=== PATIENT | male | born 1965 | race African-American/Black ===

== ENCOUNTER 2017-11-27 08:09 | Observation (INO) | payer MEDICARE, MEDICAID ==
--- NOTE | 2017-11-27 09:31 | HP ---
PRIMARY CARE PROVIDER: [facility] call admission for [facility]. CHIEF COMPLAINT: The patient referred to [facility] Hospitalist Service by [facility] HISTORY OF PRESENT ILLNESS: The patient apparently presented to emergency room with right leg pain, also was told he had sharp chest pain that have been lasting a day plus, no shortness of breath, no s weats, no nausea. He admits to cocaine abuse on a frequent basis for the past 10 years. PAST MEDICAL HISTORY: None. MEDICATIONS: None. ALLERGIES: Allergic to PENICILLIN, rash. PAST SURGICAL HISTORY: Cholecystectomy, surgery on his right knee for a bite. FAMILY HISTORY: Grandfather of coronary artery disease. SOCIAL HISTORY: . Smokes a half a pack a day, drinks 1 beer per day. CODE STATUS: Full. REVIEW OF SYSTEMS: GENERAL: No headaches, dizziness or fainting. EYES: Poor near vision. No blurred vision, flashing lights. ENT: No ear pain or drainage. No nasal bleeding. No trouble swallowing. CARDIAC: See present illness. No pressure, chest pain, orthopnea, no paroxysmal nocturnal dyspnea. RESPIRATORY: No cough, wheezing or asthma. GASTROINTESTINAL: No nausea, vomiting, diarrhea or constipation. GENITOURINARY: No hematuria, dysuria or nocturia. MUSCULOSKELETAL: Some low back pain. No pain or swelling in his arms or legs. NEUROLOGIC: No strokes, seizures or focal weakness. PSYCHIATRIC: No anxiety, depression. SKIN: No bruising, bleeding or rash. HEME/LYMPH: No tender or swollen lymph nodes. PHYSICAL EXAMINATION: VITAL SIGNS: Blood pressure in the emergency room on 162/102, pulse 64, respirations 19. He rates h is pain as a 7 although he is in no distress, lying in bed comfortably. GENERAL: He is alert, oriented, a poor historian. HEENT: Reveal pupils equal, reactive and round. Extraocular movements intact. Sclerae white. Tymp anic membranes clear. Nose is clear. Oral mucous membranes are wet with poor dental hygiene. NECK: No jugular venous distention, adenopathy or thyromegaly. CHEST: No cardiomegaly, clear to auscultation and percussion. HEART: Regular rate and rhythm, no appreciated murmurs or gallops. Mild bradycardia. ABDOMEN: Soft, bowel sounds are normal. There is no hepatosplenomegaly, no mass, no rebound. EXTREMITIES: Reveal no cyanosis, clubbing or edema. PULSES: Carotid, radial, femoral, and dorsalis pedis pulses intact and symmetric. SKIN: Warm and dry without bruises or rash. HEME/LYMPH: No tender or swollen lymph nodes in axilla, inguinal or cervical area. NEUROLOGICAL: Cranial nerves II-XII are intact. Deep tendon reflexes symmetric. X-RAY FINDINGS: Chest x-ray shows no cardiomegaly, CHF or infiltrate, reviewed by me. EKG; transfer EKG reveals junctional bradycardia which appears to have a WPW with Delta wave. Monitor has a short NV interval again with a Delta wave reviewed by me. LABORATORY DATA: From [place]. CBC: Hemoglobin 12.7, white count 4.9, platelet count 162. Ch emistry: Sodium 141, potassium 4.2, BUN 10, creatinine 0.9, AST 72, bilirubin normal, ALT normal. T SH 1.3. Drug screen positive for cocaine and THC. ADMITTING DIAGNOSES: 1. Atypical chest pain. 2. Polysubstance abuse including cocaine. 3. 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 4. Hypertension, difficult to tell whether it is longstanding or related to his cocaine abuse. PLAN: We will do serial enzymes. We will repeat an EKG. We will monitor him for 24 hours. Cardiol ogy consult if appropriate. P.r.n. blood pressure medicines as needed.
[2017-11-27] MEDS ORDERED: Acetaminophen 325 MG TAB PO PRN (09:44)
[2017-11-27] MEDS ORDERED: hydrALAZINE 20 MG/ML VIAL SLOW IVP PRN (09:44)
[2017-11-27 09:53] VITALS: BMI 17.9
[2017-11-27 10:00] LABS: Troponin I Less than 0.010 ng/mL (< 0.028)
[2017-11-27] MEDS ORDERED: Aspirin 325 MG TAB PO SCH (10:00)
[2017-11-27 12:21] LABS: Troponin I Less than 0.010 ng/mL (< 0.028)
[2017-11-27 15:26] LABS: Troponin I Less than 0.010 ng/mL (< 0.028)
[2017-11-27 16:50] LABS: T4 7.5 ug/dL (4.87-11.72); Thyroid Stimulating Hormone 0.9763 uIU/mL (0.35-4.94)
[2017-11-27] MEDS ORDERED: traMADol HCl 50 MG TAB PO PRN (19:44)
[2017-11-28] MEDS ORDERED: Aspirin 325 MG TAB ONE (08:43)
[2017-11-28] MEDS ORDERED: traMADol HCl 50 MG TAB ONE (08:44)
[2017-11-28] MEDS: Aspirin 325 MG TAB PO SCH (11:22)
[2017-11-28 12:45] LABS: Anion Gap 10 mmol/L (10-20); BUN (Urea Nitrogen) 11 mg/dL (8.4-25.7); Calc. Creatinine Clearance 74 mL/min (70-130); Calcium 8.5 mg/dL (7.8-10.44); Carbon Dioxide 26 mmol/L (22-29); Chloride 105 mmol/L (98-107); Estimated GFR-MDRD Greater than 90; Glucose 93 mg/dL (70-105); Potassium 3.8 mmol/L (3.5-5.1); Sodium 137 mmol/L (136-145)
--- NOTE | 2017-11-28 16:47 | PDOC.PN ---
- Subjective Encounter Start Date: 11/28/17 Encounter Start Time: 09:30 Subjective: follow up for bradycardia, chest pain on admission, stress test today - Objective Resuscitation Status: Resuscitation Status FULL:Full Resuscitation MAR Reviewed: Yes Vital Signs & Weight: Vital Signs (12 hours) Temp Pulse Resp BP Pulse Ox 11/28/17 15:34 98 11/28/17 15:20 98.2 F 53 L 20 131/82 98 11/28/17 10:50 99.1 F 52 L 20 113/65 98 11/28/17 07:35 99.3 F 53 L 20 131/81 98 Weight Admit Weight 58.202 kg Weight 58.202 kg I&O: 11/27/17 11/28/17 11/29/17 06:59 06:59 06:59 Intake Total 720 350 Output Total 975 600 Balance -255 -250 Result Diagrams: 11/28/17 03:30 Phys Exam - Physical Examination HEENT: PERRLA, moist MMs Neck: no nodes, no JVD, full ROM Respiratory: no wheezing, no rales, no rhonchi, wheezing present, clear to auscultation bilateral Cardiovascular: RRR, no significant murmur, no rub, gallop, irregular reports acute on chronic right sciatica Neurological: non-focal, normal sensation, moves all 4 limbs Lymphatic: no nodes Psychiatric: normal affect, A&O x 3 Skin: no rash, normal turgor, cap refill <2 seconds Dx/Plan - Plan cont current plan of care 1. stress test tomorrow as patient ate some breakfast -: 2. Continue to monitor * .
[2017-11-29 08:39] LABS: #Basophils 0.1 thou/uL (0.0-0.2); #Eosinphils 0.1 thou/uL (0.0-0.7); #Lymphocytes 2.1 thou/uL (1.20-3.40); #Monocytes 0.4 thou/uL (0.11-0.59); %Basophils 2.7 % (0.0-1.0); %Eosinophils 2.3 % (0.0-10.0); %Lymphocytes 44.8 % (21.0-51.0); %Monocytes 9.1 % (0.0-10.0); %Neutrophils 41.2 % (42.0-75.0); Hemoglobin 13.3 g/dL (14.0-18.0); Mean Corpuscular HGB CONC 30.7 g/dL (32.0-36.0); Mean Corpuscular Hemoglobin 24.2 pg (27.0-31.0); Mean Corpuscular Volume 78.9 fL (78.0-98.0); Mean Platelet Volume 9.8 fL (7.4-10.4); Platelet Count 157 thou/uL (130-400); RBC Distribution Width 14.3 % (11.5-14.5); Red Blood Cell (RBC) Count 5.49 mill/uL (4.70-6.10); White Blood Cell (WBC) Count 4.8 thou/uL (4.8-10.8)
[2017-11-29 09:01] LABS: ALT (SGPT) 40 U/L (8-55); AST (SGOT) 49 U/L (5-34); Albumin 3.2 g/dL (3.5-5.0); Alkaline Phosphatase 57 U/L (40-150); Anion Gap 11 mmol/L (10-20); BUN (Urea Nitrogen) 12 mg/dL (8.4-25.7); Bilirubin, Total 0.5 mg/dL (0.2-1.2); Calc. Creatinine Clearance 81 mL/min (70-130); Calcium 8.8 mg/dL (7.8-10.44); Carbon Dioxide 27 mmol/L (22-29); Chloride 106 mmol/L (98-107); Estimated GFR-MDRD Greater than 90; Globulin 2.9 g/dL (2.4-3.5); Glucose 90 mg/dL (70-105); Potassium 3.9 mmol/L (3.5-5.1); Protein, Total 6.1 g/dL (6.0-8.3); Sodium 140 mmol/L (136-145)
[2017-11-29] MEDS ORDERED: Regadenoson 0.4 MG/5 ML SYRINGE ONE (10:39)
[2017-11-29] MEDS: Aspirin 325 MG TAB PO SCH (10:44)
[2017-11-29 11:19] VITALS: BP 136/78; TEMP 98.3
--- NOTE | 2017-11-29 12:27 | PDOC.EVN ---
Event Note - Event Note Event Note: I have examined and discussed patient who presented with chest pain and cocaine abuse with Nidia GONZALEZ, please refer to her documented note, H&P and discharge summary today. Discussed Stress Test results and need to avoid illicit drugs with their ramifications for future health problems. Pt verbalized understanding and agreement. Recommend outpatient followup for general health maintenanceand surveillance.
--- NOTE | 2017-11-29 12:31 | NM ---
NUCLEAR MEDICINE CARDIAC STRESS AND REST WITH EJECTION FRACTION AND WALL MOTION: HISTORY: 52-year-old male with history of chest pain. TECHNIQUE: Patient was injected with 30 mCi technetium-99m sestamibi intravenously for stress images and patient was injected with 27.0 mCi technetium-99m sestamibi intravenously for resting images. FINDINGS: Multiple scans performed in the short axis, horizontal long axis, and vertical long axis demonstrate no scan evidence for infarct or ischemia. TID: 1.05 LHR: 0.37 EDV: 109 mL EF: 61% MYOCARDIAL PERFUSION WALL MOTION: Wall motion is normal. IMPRESSION: Normal cardiac SPECT with ejection fraction and wall motion. POS: CORTES
--- NOTE | 2017-11-29 13:50 | DIS ---
DATE OF ADMISSION: 11/27/2017 DATE OF DISCHARGE: 11/29/2017 HOSPITAL COURSE: He is a 52-year-old male who was admitted on 11/27/2017 and discharged on 8. He is a FULL CODE. Diet, heart healthy. ALLERGIES: PENICILLIN. DISCHARGE DIAGNOSIS: Bradycardia, asymptomatic; chest pain which is resolved; cocaine and marijuana abuse. CONSULTATIONS: None. PROCEDURES: He had a stress test which was negative with an EF of 61%. His vitals on discharge; 98.3 temperature, 49 pulse, 20 respirations, 98% on room air, blood pressure 136/78. HOSPITAL COURSE: Mr. Resendiz was admitted on 11/27/2017 [address] emergency room at [facility] after he was seen at [place] [facility] and transferred here for further care. In [facility], he presented with right leg pain and reports a sharp chest pain for several days after the last ingesting cocaine. He was noted to be bradycardic with some nonspecific ST changes and was admi tted to the hospital for further testing. Patient was observed overnight and denied further chest pa in, but a stress test was ordered and delayed by one day after the patient ate some breakfast. On da y of discharge, the patient denied chest pain, dizziness. Does report some intermittent mild right l eg and back pain which he says this is minimal at this point. Stress test was negative with an EF of 61%. The patient will be discharged to follow up with primary care within 1 week. He is in stable condition and will be discharged home via private vehicle. He currently does not have a PCP, but dash chen obtain one at [facility] and should be seen within 1 week.
== END 2017-11-29 13:52 | disposition home or self-care (01) ==
LOC: ERS 08:09 → 2SW 09:40
PROVIDERS: ADMIT Internal Medicine; ATTEND Internal Medicine
DX: R07.89 Other chest pain (principal); M79.604 Pain in right leg; R00.1 Bradycardia, unspecified; F17.210 Nicotine dependence, cigarettes, uncomplicated; F14.10 Cocaine abuse, uncomplicated; F12.10 Cannabis abuse, uncomplicated; I10 Essential (primary) hypertension; Z88.0 Allergy status to penicillin
CPT/HCPCS: 78452; 80048; 80053; 82533; 84436; 84443; 84484; 85025; 90686; 90732; 93005; 93017; 94760 ×2; 99285; A9500; G0008; G0009; G0378 ×3; 36415; 90471; 93010; J2785

== ENCOUNTER 2019-05-30 19:34 | Observation (INO) | payer MEDICARE, MEDICAID ==
[2019-05-30 20:08] LABS: Mean Corpuscular HGB CONC 32.8 g/dL (32.0-36.0); Mean Corpuscular Hemoglobin 26.3 pg (27.0-31.0); Mean Corpuscular Volume 80.2 fL (78.0-98.0); RBC Distribution Width 13.6 % (11.5-14.5); Red Blood Cell (RBC) Count 2.29 mill/uL (4.70-6.10); White Blood Cell (WBC) Count 2.4 thou/uL (4.8-10.8)
[2019-05-30 20:24] LABS: Alcohol Less than 10 mg/dL (Less than 10); Calc. Creatinine Clearance 0 mL/min (70-130)
[2019-05-30 20:35] LABS: Mean Platelet Volume 8.3 fL (7.4-10.4); Platelet Count 77 thou/uL (130-400)
[2019-05-30 20:36] LABS: Band 2 % (5-11); Eosinophils 2 % (0-10); Lymphocytes 64 % (21-51); MDiff Complete? YES; Monocytes 7 % (0-10); Neutrophil 25 % (42-75); Platelet Morphology Comment Appears Decreased
[2019-05-30 21:40] LABS: Potassium 3.7 mmol/L (3.5-5.1); Sodium 140 mmol/L (136-145)
[2019-05-30 21:41] LABS: Carbon Dioxide 27 mmol/L (22-29); Chloride 105 mmol/L (98-107)
[2019-05-30 21:42] LABS: Anion Gap 12 mmol/L (10-20); BUN (Urea Nitrogen) 12 mg/dL (8.4-25.7)
[2019-05-30 21:43] LABS: Estimated GFR-MDRD 89; Glucose 85 mg/dL (70-105)
[2019-05-30 21:44] LABS: Bilirubin, Total 0.3 mg/dL (0.2-1.2); Calcium 8.9 mg/dL (7.8-10.44); Protein, Total 6.5 g/dL (6.0-8.3)
[2019-05-30 21:45] LABS: Albumin 3.6 g/dL (3.5-5.0)
[2019-05-30 21:47] LABS: Globulin 2.9 g/dL (2.4-3.5)
[2019-05-30 21:48] LABS: Alkaline Phosphatase 74 U/L (40-110)
[2019-05-30 21:49] LABS: ALT (SGPT) 24 U/L (8-55); AST (SGOT) 28 U/L (5-34)
--- NOTE | 2019-05-30 21:52 | RAD ---
AP CHEST: History: Abdominal pain. Comparison: 03-30-17 FINDINGS: The lungs appear clear of infiltrate. Heart and mediastinum unremarkable. Vascular markings upper nor mal but stable. IMPRESSION: No acute lung process. POS: AGW
--- NOTE | 2019-05-30 21:56 | CT ---
CT ABDOMEN AND PELVIS WITH IV CONTRAST: Indications: Right abdominal pain. FINDINGS: Liver, spleen and pancreas unremarkable. Mild biliary duct prominence is seen, probably on the basis of post cholecystectomy status. Stomach is distended with ingested material. Adrenal glands and kidneys unremarkable. The urinary bladder is mildly distended. Small bowel loops normal caliber. Evaluation of the bowel is limited due to lack of oral contrast. Th ere is no intraabdominal fat plains and therefore bowel loops are suboptimally evaluated. Appendix is not definitely identified, however, no secondary signs of appendicitis. No free fluid or soft tissue mass. IMPRESSION: No definite acute abnormality identified. Bowel loops and appendix are suboptimally evaluated. No marcus dence of appendicitis identified. POS: AGW
[2019-05-30 22:03] LABS: INR-International Normal Ratio 1.1; PTT 32.9 SEC (22.9-36.1); Prothrombin Time 13.7 SEC (12.0-14.7)
[2019-05-30] MEDS ORDERED: Pantoprazole 40 MG VIAL ONE (22:28)
[2019-05-30] MEDS ORDERED: Ondansetron PF 4 MG/2 ML Vial IVP PRN (23:58)
--- NOTE | 2019-05-31 00:03 | PDOC.HHP ---
Hospitalist HPI - History of Present Illness abdominal pain History of Present Illness: This is a 53 year old male with history of bipolar disorder, schizophrenia who presented to the ER with abdominal pain. The patient states his abdominal pain started at 4:00 pm. He ate cooked chicken at home and his uncle ate it as well and nobody got sick. His abdominal pain is in his RUQ, sharp, constant, and not radiating. His pain is worst with movement and while taking a deep breath. He had no nausea or vomiting. No constipation or diarrhea. No dysuria. He denies dizziness or lightheadedness. He denies blood in his stools. He does not take blood thinners or ibuprofen. He denies fevers, chills, or recent sick contacts. He denies history of travel. The patient drinks alcohol occasionally , however has used marijuana two days ago and cocaine yesterday as well. ED Course: The patient's vitals upon presentation to the ER were normal. Labs showed pancytopenia with hemoglobin of 6. Stool guaiac not done yet in the ER. Patient received 1 unit of PRBC in the ER, protonix 40 mg. Patient received fentanyl 100 mcg in EMS and per nursing patient had hallucinations so further pain meds were held. Patient did report improvement in his pain after the transfusion Hospitalist ROS - Review of Systems Constitutional: denies: fever, chills Eyes: denies: pain, vision change ENT: denies: ear pain, ear discharge Respiratory: denies: cough, dry, shortness of breath, hemoptysis Cardiovascular: denies: chest pain, palpitations, orthopnea Gastrointestinal: reports: other (last bowel movement today). denies: nausea, vomiting, abdominal pain Genitourinary: denies: dysuria, frequency, incontinence Musculoskeletal: denies: neck pain, shoulder pain, arm pain Skin: denies: rash, lesions, wilfrid Neurological: denies: weakness, numbness - Medication Medications: None Hospitalist History - Past Medical History Cardiac: reports: no pertinent history Pulmonary: reports: no pertinent history FULLERETTE: reports: no pertinent history Psych: reports: Bipolar, Schizophrenia (suicide attempt in the past) - Past Surgical History Past Surgical History: reports: Cholecystectomy - Family History Other Family History: None - Social History Smoking Status: Current every day smoker Alcohol: reports: Occassional Drugs: reports: cocaine (few days ago), marijuana (occasionally, used few days ago) - Exam General Appearance: NAD, awake alert General - other findings: appears to be in pain holding his stomach Eye: PERRL ENT: normocephalic atraumatic, no oropharyngeal lesions Neck: supple, no JVD Heart: no murmur, no gallops, no rubs Respiratory: CTAB, no wheezes, no rales, no ronchi Gastrointestinal: soft Gastrointestinal - other findings: RLQ tenderness, mild RUQ tenderness Extremities: no cyanosis, no clubbing, no edema Skin: normal turgor, no lesions, no rashes Neurological: cranial nerve grossly intact, normal sensation to touch, no focal deficits, no new deficit Musculoskeletal: normal tone, normal strength, no muscle wasting Psychiatric: normal affect, normal behavior, A&O x 3, oriented to person Hospitalist Results - Labs Result Diagrams: 05/30/19 19:56 05/30/19 19:56 Lab results: WBC 2.4 thou/uL (4.8-10.8) L 05/30/19 19:56 Hgb 6.0 g/dL (14.0-18.0) L 05/30/19 19:56 Hct 18.4 % (42.0-52.0) L 05/30/19 19:56 MCV 80.2 fL (78.0-98.0) 05/30/19 19:56 Plt Count 77 thou/uL (130-400) L 05/30/19 19:56 Band Neuts % (Manual) 2 % (5-11) L 05/30/19 19:56 Sodium 140 mmol/L (136-145) 05/30/19 19:56 Potassium 3.7 mmol/L (3.5-5.1) 05/30/19 19:56 Chloride 105 mmol/L (98-107) 05/30/19 19:56 Carbon Dioxide 27 mmol/L (22-29) 05/30/19 19:56 BUN 12 mg/dL (8.4-25.7) 05/30/19 19:56 Creatinine 1.05 mg/dL (0.7-1.3) 05/30/19 19:56 Glucose 85 mg/dL (70-105) 05/30/19 19:56 Lactic Acid 1.8 mmol/L (0.5-2.2) 05/30/19 21:43 Calcium 8.9 mg/dL (7.8-10.44) 05/30/19 19:56 Total Bilirubin 0.3 mg/dL (0.2-1.2) 05/30/19 19:56 AST 28 U/L (5-34) 05/30/19 19:56 ALT 24 U/L (8-55) 05/30/19 19:56 Alkaline Phosphatase 74 U/L (40-110) 05/30/19 19:56 Troponin I Less than 0.010 ng/mL (< 0.028) 05/30/19 21:43 Serum Total Protein 6.5 g/dL (6.0-8.3) 05/30/19 19:56 Albumin 3.6 g/dL (3.5-5.0) 05/30/19 19:56 Lipase 29 U/L (8-78) 05/30/19 21:43 - EKG Interpretation EKG: T wave inversion Hospitalist H&P A/P - Plan Plan: Chest Xray: no acute disease CT abdomen: no acute abnormality This is a 53 year old male with history of schizophrenia, bipolar presenting with abdominal pain and new onset anemia #Abdominal pain #Pancytopenia #Symptomatic anemia - hemoglobin 6. No history of sickle cell disease. S/p 1 unit prbc in the ER, patient will get additional unit. Check stool guaiac. CT abdomen normal, lactate normal - Will order protonix drip. - iron panel, B12, folate in the am. Will place GI consult. Consider heme evaluation if workup negative - pt reports recent HIV test 4 months ago that was negative Cocaine and marijuana abuse - will check utox History of hepatitis C - patient reports hep C that is untreated, will check antibody Bipolar/Schizophrenia - not on meds currently, pt to see psychiatrist soon GI prophylaxis: protonix drip DVT prophylaxis: contraindicated Code status: full code
[2019-05-31] MEDS ORDERED: Dextrose 5 % And 0.9 % NaCl 1,000 ML IV SCH (00:15)
[2019-05-31 00:48] LABS: Iron 79 ug/dL (65-175); Iron Binding Capacity, Total 221 mcg/dL (261-462)
[2019-05-31] MEDS: Pantoprazole 80 MG in Sodium Chloride 0.9% 100 ML IVPB SCH ×3 (00:50→21:48)
[2019-05-31] MEDS: Dextrose 5 % And 0.9 % NaCl 1,000 ML IV SCH ×2 (00:59→21:48)
[2019-05-31 01:08] LABS: Bacteria/HPF None Seen HPF (None Seen); Bilirubin Negative (Negative); Blood, Urine Negative (Negative); Clarity Clear (Clear); Glucose, Urine (Dipstick) Normal (Negative); Leukocyte Negative Leu/uL (Negative); Nitrite Negative (Negative); Protein, Urine (Dipstick) Negative (Neg-Trace); Squamous Epithelial 0-3 HPF (0-3); WBC/HPF 0-3 HPF (0-3)
[2019-05-31 01:10] LABS: Amphetamine Detected (NotDetected); Barbiturates Screen Not Detected (NotDetected); Benzodiazepine Screen Not Detected (NotDetected); Cocaine Metabolite Screen Detected (NotDetected); Medtox Control Line Valid? VALID (VALID); Medtox Reader # READER 4; Methadone Not Detected (NotDetected); Methamphetamine Detected (NotDetected); Opiate Screen Detected (NotDetected); Oxycodone Screen Not Detected (NotDetected); Phencyclidine (PCP) Not Detected (NotDetected); THC/Cannabinoid Screen Not Detected (NotDetected); Tricyclic Screen Not Detected (NotDetected); Urine Culture Reflex No No
[2019-05-31 05:50] LABS: Iron 131 ug/dL (65-175); Iron Binding Capacity, Total 213 mcg/dL (261-462)
[2019-05-31 06:10] LABS: Ferritin 91.88 ng/mL (22-322)
[2019-05-31 06:16] LABS: Vitamin B12 365 pg/mL (211-911)
[2019-05-31 06:21] LABS: Hep C IgG Ab Reflex HepC Qnt (NonReactive); Hep C Index 13.35 S/CO (0-0.79)
[2019-05-31 07:16] LABS: Hemoglobin 14.4 g/dL (14.0-18.0); Mean Corpuscular HGB CONC 32.5 g/dL (32.0-36.0); Mean Corpuscular Hemoglobin 25.9 pg (27.0-31.0); Mean Corpuscular Volume 79.7 fL (78.0-98.0); Mean Platelet Volume 9.6 fL (7.4-10.4); Platelet Count 134 thou/uL (130-400); RBC Distribution Width 15.4 % (11.5-14.5); Red Blood Cell (RBC) Count 5.57 mill/uL (4.70-6.10); White Blood Cell (WBC) Count 8.2 thou/uL (4.8-10.8)
[2019-05-31] MEDS: Morphine 2 MG/ML SYRINGE SLOW IVP PRN ×2 (10:25→19:41)
--- NOTE | 2019-05-31 15:18 | CON ---
DATE OF CONSULTATION: 05/31/2019 REASON FOR CONSULTATION: Right upper quadrant abdominal pain. CONSULTING PHYSICIAN: Aubree Campbell MD HISTORY OF PRESENT ILLNESS: The patient is a 53-year-old male with past medical history of chronic hepatitis C infection, bipolar disorder, schizophrenia, and cholelithiasis status post cholecystectomy, presenting with right upper quadrant abdominal pain. He states that he was in his usual state of health until yesterday afternoon when he had the acute onset of increased right upper quadrant and right lower quadrant abdominal pain. This pain was characterized as a sharp/stabbing type sensation, would radiate to the periumbilical region, was constant with waxing/waning severity, and reached a severity of 10/10. This pain was worse with talking for a prolonged period of time, walking/physical activity, pressure to the region, and bending over. The pain was only better with the administration of pain medications during this admission. However, the pain did not have any associated symptoms with the patient denying any nausea, vomiting, fevers, chills, hematemesis, melena, hematochezia, dysphagia, odynophagia, diarrhea, constipation, or weight loss. The patient does take ibuprofen, but is only taking around 400 mg weekly for general aches and pains. With the sudden onset of this abdominal pain and the constant nature of it, it prompted the patient to seek healthcare assistance within the [facility] ER. While in the ER, he was noted to have a significantly decreased hemoglobin and hematocrit, concerning for possible bleeding. He was given approximately 2 units of PRBCs, but repeat hemoglobin and hematocrit this morning showed normalization of both his hemoglobin and hematocrit (even with recheck of his hemoglobin and hematocrit). He does continue to have the right lower quadrant/right upper quadrant abdominal pain, that is currently being managed moderately with p.r.n. use of narcotic administration. The patient does have a history of polysubstance abuse with his last use of marijuana approximately 2 days ago, cocaine within the last 24 to 48 hours in addition to methamphetamine/ice around 4 to 5 days ago. REVIEW OF SYSTEMS: A 10-category review of systems was obtained with all responses negative except for the pertinent positives as listed in HPI. PAST MEDICAL HISTORY: As per HPI. PAST SURGICAL HISTORY: Cholecystectomy. FAMILY HISTORY: Denies any GI malignancies. SOCIAL HISTORY: Smokes approximately 1/4 to 1/2 pack per day of tobacco. Reports drinking approximately 2 to 3 alcoholic drinks every week, and endorses the use of illicit drugs (cocaine 24 to 48 hours ago, marijuana 2 days ago, methamphetamine/ice 4 to 5 days ago). OUTPATIENT MEDICATIONS: Ibuprofen as needed. ALLERGIES: PENICILLIN. PHYSICAL EXAMINATION: VITAL SIGNS: Temperature 98.2, pulse 53, blood pressure 164/86, respiratory rate 16, and saturating 99% on room air. GENERAL: The patient was lying in bed, in no acute distress. Alert and oriented x4. HEENT: Normocephalic and atraumatic. NECK: Supple. No JVD or scleral icterus noted. CARDIOVASCULAR: Regular rate and rhythm with frequent premature atrial contractions, but no discernable murmurs, gallops, or rubs. RESPIRATORY: Clear to auscultation bilaterally with no discernable wheezes or rales. ABDOMEN: Normoactive bowel sounds. Soft, but mild guarding to pain. Tender to palpation in the right upper quadrant and right lower quadrant. However, upon palpation of the right lower ribs, I was also able to reproduce the pain as well. EXTREMITIES: No cyanosis, clubbing, or edema. LABORATORY DATA: CBC with a white blood cell count of 8.2, hemoglobin 15, hematocrit 48.2, and platelets 134. INR 1.1. Chemistry with a sodium of 140, potassium 3.7 chloride 105, CO2 of 27, BUN 12, creatinine 1.05, glucose 85, AST 28, ALT 24, alkaline phosphatase 74, and total bilirubin 0.3. Folate 6, B12 of 365, iron 79, ferritin 91, and TIBC 221. Drug screen was positive for opiates, amphetamine, methamphetamine, and cocaine. IMAGING DATA: CT of the abdomen and pelvis was obtained on 05/30/2019, which showed no acute abnormalities in a noncontrasted exam. However, upon my read, there was significant dilation of the urinary bladder with a fair amount of stool seen within the distal colon (could not tell if this was due to his distended bladder). ASSESSMENT AND PLAN: The patient is a 53-year-old male with past medical history of chronic hepatitis C infection, bipolar disorder, schizophrenia, polysubstance abuse, and cholelithiasis status post cholecystectomy, presenting with increased right lower quadrant/right upper quadrant abdominal pain and anemia. 1. Right-sided abdominal pain: The patient is presenting with fairly acute onset of increased right upper quadrant abdominal pain, characterized as a sharp/stabbing type sensation, it is constant with waxing/waning severity, and reaching a severity of 10/10. The patient has never felt this particular pain before including when he had his gallbladder removed. Further evaluation of his labs showed no significant abnormality within the liver function tests and his initial anemia on rechecking his hemoglobin and hematocrit was deemed to be erroneous, making a possible bleeding source much less likely. On physical exam, the patient seems to be having increased abdominal pain in both the right lower quadrant and right upper quadrant, but also has increased pain within the right lower ribs, concerning for musculoskeletal origin rather than a gastrointestinal etiology. At this time, the differential could include costochondritis/right rib pain, constipation with increased pressure within the right colon, choledocholithiasis (less likely given normal liver function tests), mesenteric or intestinal ischemia secondary to the vasoconstrictive effects from methamphetamine and cocaine and/or GI neoplasm. Recommendations: a. Pain control per primary team, but would attempt to avoid narcotics given the higher likelihood of constipation. b. Would consider evaluation of urinary bladder dysfunction compressing the distal colon and creating constipation. c. Could consider use of NSAIDs for costochondritis and couple with PPI. d. Would start the patient on a bowel regimen including MiraLAX one capful daily for probable constipation. e. Strongly encourage cessation of any illicit drugs. f. If the patient is not responding to more conservative management for his abdominal pain, I would then consider possible repeat of the CT abdomen and pelvis with contrast prior to proceeding with upper or lower endoscopy. 2. Anemia: The patient initially presented to the hospital with his initial hemoglobin and hematocrit of 6.0 and 18.4. He was subsequently given 2 units of packed red blood cells in the ER and admitted to the hospitalist service for further evaluation. However, on recheck of his hemoglobin and hematocrit today, the initial hemoglobin was 14.4 with a recheck at 15. At this point, it seems that the hemoglobin of 6 yesterday was an erroneous value and not indicative of any significant anemia at this time. Based on his current iron indices, they are fairly normal as well, again not indicative of an iron deficiency anemia despite the fact that his MCV is a bit on the low side. Recommendations: a. Would continue to trend his hemoglobin and hematocrit to confirm that the initial lab value was erroneous. b. No further anemia workup is planned at this time. We will continue to follow. Please call with any questions. Job ID: [id number]
[2019-05-31] MEDS ORDERED: Folic Acid 1 MG TAB PO SCH (16:15)
[2019-05-31] MEDS ORDERED: hydrALAZINE 20 MG/ML VIAL SLOW IVP SCH (20:00)
[2019-06-01 04:29] VITALS: TEMP 98
[2019-06-01] MEDS: Morphine 2 MG/ML SYRINGE SLOW IVP PRN ×2 (05:25→09:23)
[2019-06-01] MEDS: Pantoprazole 80 MG in Sodium Chloride 0.9% 100 ML IVPB SCH (08:02)
[2019-06-01] MEDS ORDERED: Folic Acid 1 MG TAB PO SCH (09:00)
[2019-06-01] MEDS ORDERED: Polyethylene Glycol 3350 17 GM Packet PO SCH (09:00)
[2019-06-01] MEDS ORDERED: Acetaminophen 500 MG TAB PO PRN (10:50)
[2019-06-01 13:13] VITALS: BP 131/84
--- NOTE | 2019-06-01 15:57 | PRG ---
DATE OF SERVICE: 06/01/2019 SUBJECTIVE: Mr. Resendiz is no longer having abdominal pain. He is going to be discharged home today. OBJECTIVE: VITAL SIGNS: Temperature is 98, pulse 54, blood pressure 131/84. ABDOMEN: Soft, nontender. There is no rebound. There is no guarding. LABORATORY DATA: Hemoglobin yesterday was 15, on repeat was not checked today; his MCV is 80 to 79, it has been that way for several years. He had normal iron studies with iron 131, TIBC of 213, saturation 62%, ferritin 91, folate was 6. B12 was 365. UDS positive for opioids, amphetamine, methamphetamine, cocaine, and cannabinoids. Hepatitis C antibody on 05/[address] on 05/30/2019, no definite acute abnormality. ASSESSMENT: 1. Presented today with acute anemia, although on recheck of labs, his blood count was normal and had been 13.4 on 05/27/2019. On 05/29, it was 6. Recheck on 05/30, it was 14, then 15. It seems the lab was artifactually low. 2. Hepatitis C antibody positive. 3. Ongoing substance abuse. 4. Resolution of abdominal pain, which was likely related to cocaine use and methamphetamine with negative CAT scan. RECOMMENDATIONS: 1. PPI. 2. Stop drug use. 3. Follow up in my office to treat hepatitis C. The patient was given our office number and discussed with them with hepatitis C, there is risk of hepatoma, liver cancers, cirrhosis, and . Recommended he stop using drugs, get to our office to get treated. He said he did not have a number we can call him, but I did give him our number. Job ID: [id number]
[2019-06-02 12:37] LABS: HCV log10 5.017 (.); Hep C PCR-Quant 104000 IU/mL (.)
--- NOTE | 2019-06-03 14:08 | DIS ---
DATE OF ADMISSION: 05/30/2019 DATE OF DISCHARGE: 06/01/2019 HISTORY: Mr. Resendiz is a 53-year-old male with a history of bipolar disorder, schizophrenia, and polysubstance abuse, presented with abdominal pain. He was diagnosed with acute abdominal pain due to opioid withdrawal as well as cocaine and methamphetamine use. He was also diagnosed with chronic hepatitis C. PROBLEMS: 1. Abdominal pain due to polysubstance abuse. a. The patient has had a long history of polysubstance abuse. b. Presented with acute abdominal pain without specific findings. c. Pain spontaneously resolved the day following presentation. d. abdomianl pain due to opioid abuse (constipation) or withdrawal, or mesenteric ischemia due to cocaine or methamphetamine-induced ischemia. e. Gastroenterology was consulted and had a long discussion as well as myself with the patient regarding risks of continued polysubstance abuse as well as written instructions on how to receive help. 2. Hepatitis C, chronic: a. Gastroenterology prior to discharge of the patient left the patient with written information regarding clinic and how to reach them. In addition to that, Gastroenterology educated the patient regarding the risk of not treating hepatitis C. 3. Polysubstance abuse. a. On presentation, the patient had opioids, amphetamine, methamphetamine, and cocaine in his urine. b. The patient was educated regarding the risks of continued polysubstance abuse as well as written referrals in order to receive help. PHYSICAL EXAMINATION: VITAL SIGNS: Blood pressure 131/84, pulse 50-60s throughout inpatient stay and the patient remained asymptomatic, respiratory rate 16, oxygen saturation 98% on room air, and temperature 98.0 Fahrenheit. GENERAL: No apparent distress. Awake and alert. HEENT: Eyes, PERRL. ENT, normocephalic atraumatic with moist oral mucosa. NECK: No JVD. HEART: No murmur. No gallops. No rubs. RESPIRATORY: Clear to auscultation bilaterally. No wheezes, no rales, no rhonchi. GI: Soft, nontender, and nondistended. EXTREMITIES: No edema. NEUROLOGIC: Cranial nerves grossly intact, 2 through 12. Strength 5/5 throughout upper and lower extremities. PSYCHIATRIC: Normal affect. Normal behavior. Alert and oriented x3. MEDICATION LIST: New medications: 1. Multivitamin. 2. Iron. 3. Folic acid. 4. MiraLAX. Modified medication, none. Hold medication, none. Job ID: [id number] MTDD
--- NOTE | 2019-06-05 09:59 | EKG ---
Test Reason : Blood Pressure : / mmHG Vent. Rate : 058 BPM Atrial Rate : 058 BPM P-R Int : 142 ms QRS Dur : 090 ms QT Int : 468 ms P-R-T Axes : 084 074 062 degrees QTc Int : 459 ms Sinus bradycardia Possible Left atrial enlargement Borderline ECG Confirmed by TOYIN ACEVEDO ([id number]), photographic editor DIPAK NUNEZ ([id number]) on 06/05/2019 9:59:06 AM Referred By: Confirmed By:TOYIN ACEVEDO
== END 2019-06-01 15:00 | disposition home or self-care (01) ==
LOC: ERS 19:34 → T4-B 22:33
PROVIDERS: ADMIT Internal Medicine; ATTEND Internal Medicine
DX: R10.11 Right upper quadrant pain (principal); F19.10 Other psychoactive substance abuse, uncomplicated; D61.818 Other pancytopenia; D64.9 Anemia, unspecified; F20.9 Schizophrenia, unspecified; F31.9 Bipolar disorder, unspecified; F17.210 Nicotine dependence, cigarettes, uncomplicated; B18.2 Chronic viral hepatitis C; Z88.0 Allergy status to penicillin
CPT/HCPCS: 36430 ×2; 71045; 74177; 80053; 80306; 80307; 81001; 82607; 82728; 82746; 83540 ×2; 83550 ×2; 83605; 83690; 84484; 85014; 85018; 85025; 85027; 85610; 85730; 86803; 86850; 86900; 86901; 86920; 87522; 93005; 96361 ×3; 96365; 96366; 96375; 96376 ×3; 99285; C9113 ×3; G0378 ×2; J0360; J2270 ×2; J3490 ×2; P9016 ×2; 36415; 96374

== ENCOUNTER 2019-11-10 01:53 | Emergency (ER) | payer MEDICARE, OTHER ==
[2019-11-10 02:30] LABS: #Basophils 0.1 thou/uL (0.0-0.2); #Eosinphils 0.2 thou/uL (0.0-0.7); #Lymphocytes 2.7 thou/uL (1.20-3.40); #Monocytes 0.3 thou/uL (0.11-0.59); #Neutrophils 2.2 thou/uL (1.40-6.50); %Basophils 1.1 % (0.0-1.0); %Eosinophils 2.9 % (0.0-10.0); %Lymphocytes 49.9 % (21.0-51.0); %Monocytes 5.9 % (0.0-10.0); %Neutrophils 40.2 % (42.0-75.0); Hemoglobin 14.1 g/dL (14.0-18.0); Mean Corpuscular HGB CONC 32.3 g/dL (32.0-36.0); Mean Corpuscular Hemoglobin 25.9 pg (27.0-31.0); Mean Platelet Volume 8.7 fL (7.4-10.4); Platelet Count 156 thou/uL (130-400); RBC Distribution Width 13.6 % (11.5-14.5); Red Blood Cell (RBC) Count 5.45 mill/uL (4.70-6.10); White Blood Cell (WBC) Count 5.4 thou/uL (4.8-10.8)
[2019-11-10 02:52] LABS: ALT (SGPT) 94 U/L (8-55); AST (SGOT) 99 U/L (5-34); Albumin 3.8 g/dL (3.5-5.0); Alkaline Phosphatase 133 U/L (40-110); Anion Gap 14 mmol/L (10-20); BUN (Urea Nitrogen) 16 mg/dL (8.4-25.7); Bilirubin, Total 0.2 mg/dL (0.2-1.2); CK (CPK) 128 U/L (30-200); Calc. Creatinine Clearance 0 mL/min (70-130); Carbon Dioxide 24 mmol/L (22-29); Chloride 105 mmol/L (98-107); Estimated GFR-MDRD Greater than 90; Globulin 3.1 g/dL (2.4-3.5); Glucose 68 mg/dL (70-105); Lipase 158 U/L (8-78); Potassium 3.5 mmol/L (3.5-5.1); Protein, Total 6.9 g/dL (6.0-8.3); Sodium 139 mmol/L (136-145)
[2019-11-10 02:53] LABS: Acetaminophen Less than 6.0 mcg/mL (10.0-30.0); Alcohol Less than 10 mg/dL (Less than 10); Salicylate Less than 8.0 mg/dL (15.0-30.0)
[2019-11-10 04:36] LABS: Amphetamine Detected (NotDetected); Barbiturates Screen Not Detected (NotDetected); Benzodiazepine Screen Not Detected (NotDetected); Cocaine Metabolite Screen Detected (NotDetected); Medtox Control Line Valid? VALID (VALID); Medtox Reader # READER 4; Methadone Not Detected (NotDetected); Methamphetamine Detected (NotDetected); Opiate Screen Detected (NotDetected); Oxycodone Screen Not Detected (NotDetected); Phencyclidine (PCP) Not Detected (NotDetected); THC/Cannabinoid Screen Detected (NotDetected); Tricyclic Screen Not Detected (NotDetected)
--- NOTE | 2019-11-10 07:44 | RAD ---
EXAM: CHEST ONE VIEW HISTORY: Chest pain. COMPARISON: 09/19/2019 FINDINGS: The cardiac silhouette and pulmonary vasculature are within normal limits. The lungs are clear. The o sseous structures are intact. IMPRESSION: No acute cardiopulmonary process.
[2019-11-10 15:49] LABS: SARS-CoV-2 NAA Rapid Test Not Detected (NotDetected)
--- NOTE | 2019-11-23 16:23 | EKG ---
Test Reason : Blood Pressure : / mmHG Vent. Rate : 044 BPM Atrial Rate : 048 BPM P-R Int : 000 ms QRS Dur : 086 ms QT Int : 502 ms P-R-T Axes : 000 073 015 degrees QTc Int : 429 ms Junctional bradycardia Abnormal ECG Confirmed by MELISA SINGH DO ([id number]), mapping editor KAVIN HERRERA ([id number]) on 11/23/2019 4:22:27 PM Referred By: Confirmed By:MELISA SINGH DO
== END 2019-11-10 20:22 ==
LOC: ERS 01:53
DX: R07.89 Other chest pain (principal); F15.10 Other stimulant abuse, uncomplicated; Z20.828 Contact with and (suspected) exposure to other viral communicable diseases; R45.851 Suicidal ideations; I10 Essential (primary) hypertension; F31.9 Bipolar disorder, unspecified; F20.9 Schizophrenia, unspecified; F41.9 Anxiety disorder, unspecified; F17.210 Nicotine dependence, cigarettes, uncomplicated; Z87.442 Personal history of urinary calculi
CPT/HCPCS: 71045; 80306; 80307; 82550; 83690; 84484; 93005; 99285; U0002; 36415; 80053; 84443; 85025

== ENCOUNTER 2019-12-28 03:28 | Emergency (ER) | payer MEDICARE, OTHER ==
[2019-12-28] MEDS ORDERED: Ketorolac Tromethamine 30 MG/ML VIAL ONE (03:53)
== END 2019-12-28 04:40 | disposition home or self-care (01) ==
LOC: ERS 03:28
DX: G89.29 Other chronic pain (principal); M54.9 Dorsalgia, unspecified; M25.561 Pain in right knee; I10 Essential (primary) hypertension; F31.9 Bipolar disorder, unspecified; F41.9 Anxiety disorder, unspecified; F17.210 Nicotine dependence, cigarettes, uncomplicated; F25.9 Schizoaffective disorder, unspecified
CPT/HCPCS: J1885

== ENCOUNTER 2019-12-28 14:54 | Inpatient (IN) | payer MEDICARE, MEDICAID ==
[2019-12-28] MEDS ORDERED: Atropine Sulfate 1 mg/10 ml Syringe ONE (16:27)
[2019-12-28 16:37] LABS: Mean Corpuscular HGB CONC 31.2 g/dL (32.0-36.0); Mean Corpuscular Hemoglobin 24.6 pg (27.0-31.0); Mean Platelet Volume 9.4 fL (7.4-10.4); Platelet Count 132 thou/uL (130-400); RBC Distribution Width 14.1 % (11.5-14.5); Red Blood Cell (RBC) Count 6.08 mill/uL (4.70-6.10); White Blood Cell (WBC) Count 4.7 thou/uL (4.8-10.8)
--- NOTE | 2019-12-28 16:42 | RAD ---
XR Chest 1 View Portable History: Dyspnea Comparison: Radiograph December 02, 2019 Findings: Fibular projects over the right upper chest wall. Lungs are clear. No pneumothorax. No effu aidee. Prominent left nipple shadow. No acute osseous abnormality. Impression: No acute intrathoracic abnormality.
[2019-12-28 16:55] LABS: ALT (SGPT) 71 U/L (8-55); AST (SGOT) 111 U/L (5-34); Alkaline Phosphatase 93 U/L (40-110); Anion Gap 16 mmol/L (10-20); BUN (Urea Nitrogen) 22 mg/dL (8.4-25.7); Bilirubin, Total 0.6 mg/dL (0.2-1.2); CK (CPK) 398 U/L (30-200); Calc. Creatinine Clearance 0 mL/min (70-130); Calcium 9.5 mg/dL (7.8-10.44); Carbon Dioxide 26 mmol/L (22-29); Chloride 103 mmol/L (98-107); Estimated GFR-MDRD Greater than 90; Globulin 3.5 g/dL (2.4-3.5); Lipase 44 U/L (8-78); Potassium 3.7 mmol/L (3.5-5.1); Protein, Total 7.5 g/dL (6.0-8.3); Sodium 141 mmol/L (136-145)
[2019-12-28 17:03] LABS: Acetaminophen Less than 6.0 mcg/mL (10.0-30.0); Alcohol Less than 10 mg/dL (Less than 10); Salicylate Less than 8.0 mg/dL (15.0-30.0)
[2019-12-28 17:05] LABS: Eosinophils 4 % (0-10); Hypochromia SLIGHT = 6-15 cells (100X) (0-5/hpf); Lymphocytes 40 % (21-51); MDiff Complete? YES; Monocytes 15 % (0-10); Neutrophil 31 % (42-75); Platelet Morphology Comment Appears Adequate; Polychromasia SLIGHT = 2-3 cells (100X) (0-2/hpf); Reactive Lymphocytes 10 % (0-10); Target Cells MODERATE= 6-15 cells (100X) (0-1/hpf)
[2019-12-28 17:09] LABS: Glucose 45 mg/dL (70-105)
[2019-12-28] MEDS ORDERED: Dextrose 50% Abboject 50 ML SYRINGE ONE (17:14)
--- NOTE | 2019-12-28 17:56 | CT ---
CT Brain WO Con History: Auditory hallucinations Comparison: CT brain November 15, 2019 Findings: No acute hemorrhage or infarct. Right paracentral canela radiata hypodensity is similar. No midline shift or mass effect. Particular size and extra-axial CSF spaces are similar. No acute osseous abnormality. Paranasal sinuses and mastoids are clear. Impression: No acute intracranial abnormality.
[2019-12-28] MEDS ORDERED: Cefepime 2 GM VIAL ONE (18:02)
[2019-12-28] MEDS ORDERED: Aspirin Chewable 81 MG TAB ONE (18:03)
--- NOTE | 2019-12-28 18:21 | RAD ---
XR Pelvis AP STANDARD History: Pain Comparison: Pelvis CT December 02, 2019 Findings: No acute displaced fracture or malalignment. Obturator rings are intact. Soft tissues are unremarkable. Impression: No acute osseous abnormality.
[2019-12-28 18:42] LABS: Bilirubin Negative (Negative); Blood, Urine Negative (Negative); Clarity Clear (Clear); Glucose, Urine (Dipstick) 200 mg/dL (Negative); Ketone, Urine Negative (Negative); Leukocyte Negative Leu/uL (Negative); Nitrite Negative (Negative); Protein, Urine (Dipstick) Negative (Neg-Trace); Specific Gravity, Urine 1.006 (1.002-1.036); Urobilinogen Normal mg/dL (Less than 2)
[2019-12-28] MEDS ORDERED: Vancomycin 1 GM/200 ML BAG ONE (18:56)
[2019-12-28 19:00] LABS: Amphetamine Detected (NotDetected); Barbiturates Screen Not Detected (NotDetected); Benzodiazepine Screen Not Detected (NotDetected); Cocaine Metabolite Screen Not Detected (NotDetected); Medtox Control Line Valid? VALID (VALID); Medtox Reader # READER 1; Methadone Not Detected (NotDetected); Methamphetamine Detected (NotDetected); Opiate Screen Not Detected (NotDetected); Oxycodone Screen Not Detected (NotDetected); Phencyclidine (PCP) Not Detected (NotDetected); THC/Cannabinoid Screen Not Detected (NotDetected); Tricyclic Screen Not Detected (NotDetected)
[2019-12-28 19:51] LABS: Lactic Acid 2.3 mmol/L (0.5-2.2)
[2019-12-28 19:57] LABS: Troponin I Less than 0.010 ng/mL (< 0.028)
--- NOTE | 2019-12-28 20:52 | PDOC.HHP ---
Hospitalist HPI - History of Present Illness Altered mental status History of Present Illness: Mr. Resendiz is a 54-year-old male patient with a history of bipolar disorder, schizophrenia and polysubstance abuse was brought to the ER for medical evaluation for a psychiatric condition requiring [facility] evaluation. He is noted to have reported hearing voices in his behavior was erratic. He was apparently taken to [facility] and later brought here for further evaluation. Time of my evaluation patient was lying in bed somnolent complaining of generalized body pains. He was talking but barely audibly. He complains of generalized body pains in his knees bilaterally back and several points on his head. He also admits to auditory hallucinations telling him to kill himself. He denies any nausea vomiting chest pain or shortness of breath. Next At presentation blood pressure was 118/115, pulse 44, respiratory 26 temperature 96 saturating at 100% on room air. His labs showed unremarkable BMP, he however had hypoglycemia 45. WBC was slightly elevated at 4.7 otherwise CBC was essentially normal. Lactic acid was multilevel at 3.7. Urine drug screen revealed presence of methamphetamines and amphetamines. CT scan of his brain was negative for any acute event, pelvic x-ray was unremarkable, chest x-ray also showed no acute intrathoracic events. Due to concern for sepsis he was given vancomycin and cefepime. He received 1.5 L normal saline and dextrose for hypoglycemia. Also received atropine for bradyca rdia with improvement in his heart rate. Hospitalist ROS - Review of Systems Constitutional: denies: fever, chills Respiratory: denies: cough, shortness of breath, hemoptysis, SOB with excertion Cardiovascular: denies: chest pain, palpitations, orthopnea, paroxysmal noc. dyspnea Gastrointestinal: denies: nausea, vomiting, abdominal pain, diarrhea Musculoskeletal: reports: neck pain, back pain Neurological: denies: weakness, numbness, incoordination, change in speech Hospitalist History - Past Medical History Psych: reports: Bipolar, Schizophrenia (suicide attempt in the past) Other Medical History: bipolar disorder, schizophrenia and polysubstance abuse - Past Surgical History Past Surgical History: reports: Cholecystectomy - Family History Family History: reports: no pertinent history - Social History Smoking Status: Current every day smoker Alcohol: reports: Occassional Drugs: reports: cocaine (few days ago), marijuana (occasionally, used few days ago) - Exam General - other findings: Awake but drowsy Eye: PERRL, anicteric sclera Neck: supple, no JVD Heart: RRR, no murmur, no gallops, normal peripheral pulses Respiratory: no wheezes, no rales, no ronchi, no tachypnea Gastrointestinal: soft, non-tender, non-distended, normal bowel sounds Extremities: no cyanosis, no clubbing, no edema Neurological: cranial nerve grossly intact, no weakness Psychiatric: A&O x 3, flat affect Psychiatric - other findings: Lethargic Hospitalist Results - Labs Result Diagrams: 12/28/19 16:27 12/28/19 16:27 Lab results: WBC 4.7 thou/uL (4.8-10.8) L 12/28/19 16:27 Hgb 15.0 g/dL (14.0-18.0) 12/28/19 16:27 Hct 48.0 % (42.0-52.0) 12/28/19 16:27 MCV 79.0 fL (78.0-98.0) 12/28/19 16:27 Plt Count 132 thou/uL (130-400) 12/28/19 16:27 Sodium 141 mmol/L (136-145) 12/28/19 16:27 Potassium 3.7 mmol/L (3.5-5.1) 12/28/19 16:27 Chloride 103 mmol/L (98-107) 12/28/19 16:27 Carbon Dioxide 26 mmol/L (22-29) 12/28/19 16:27 BUN 22 mg/dL (8.4-25.7) 12/28/19 16:27 Creatinine 1.00 mg/dL (0.7-1.3) 12/28/19 16:27 Glucose 45 mg/dL (70-105) L* 12/28/19 16:27 Lactic Acid 2.3 mmol/L (0.5-2.2) H 12/28/19 19:24 Calcium 9.5 mg/dL (7.8-10.44) 12/28/19 16:27 Total Bilirubin 0.6 mg/dL (0.2-1.2) 12/28/19 16:27 AST 111 U/L (5-34) H 12/28/19 16:27 ALT 71 U/L (8-55) H 12/28/19 16:27 Alkaline Phosphatase 93 U/L (40-110) 12/28/19 16:27 Creatine Kinase 398 U/L (30-200) H 12/28/19 16:27 Troponin I Less than 0.010 ng/mL (< 0.028) 12/28/19 19:24 B-Natriuretic Peptide 18.2 pg/mL (0-100) 12/28/19 16:27 Serum Total Protein 7.5 g/dL (6.0-8.3) 12/28/19 16:27 Albumin 4.0 g/dL (3.5-5.0) 12/28/19 16:27 Lipase 44 U/L (8-78) 12/28/19 16:27 Urine Ketones Negative mg/dL (Negative) 12/28/19 17:59 Urine Blood Negative (Negative) 12/28/19 17:59 Urine Nitrite Negative (Negative) 12/28/19 17:59 Ur Leukocyte Esterase Negative Amanda/uL (Negative) 12/28/19 17:59 Hospitalist H&P A/P - Plan Plan: This is a 54-year-old male patient with a history of polysubstance abuse, h ypertension schizophrenia bipolar disorder who presents with altered mental status for evaluation. Next Possible sepsis WBC slightly reduced, elevated lactate, elevated liver enzyme Will continue on antibiotics Follow-up on culture Acute encephalopathy Multifactorialsubstance abuse, hypoglycemia, possible sepsis Hypoglycemia corrected with dextrose We will monitor overnight on admission. Psychotic disorder Has history of schizophrenia/bipolar disorder Not clear what his medications are the moment To contact patient's pharmacy in a.m or help from [facility]. Zyprexa as needed for agitation Bradycardia Heart rate goes as low as 40s. Currently improved after atropine Monitor on telemetry As needed atropine Cardiology evaluation am Depression Patient depressed-likely component of bipolar disorder Noted previous suicidal ideation. We will treat his psychiatric disorders Sitter in room. [facility] evaluation once stable Hypoglycemia Glucose corrected Monitor Hepatitis AST elevated at 111 ALT of 71 Right upper quadrant ultrasound in a.m. [place] prophylaxisfull code
[2019-12-28] MEDS ORDERED: Dextrose 5% in Water 1,000 ML IV PRN (21:15)
[2019-12-28] MEDS ORDERED: Dextrose 50% Abboject 50 ML SYRINGE SLOW IVP PRN (21:15)
[2019-12-28] MEDS ORDERED: OLANZapine 10 MG VIAL IM PRN ×2 (21:18→21:21)
[2019-12-28] MEDS ORDERED: Dextrose 5 % And 0.9 % NaCl 1,000 ML IV SCH (21:30)
[2019-12-28] MEDS ORDERED: Atropine Sulfate 1 mg/1 ml Vial IVP PRN (22:26)
[2019-12-28 22:56] LABS: Troponin I 0.026 ng/mL (< 0.028)
[2019-12-28 22:58] VITALS: BMI 18.5
[2019-12-28] MEDS: Acetaminophen 325 MG TAB PO PRN (23:30)
[2019-12-29] MEDS ORDERED: Lidocaine 5% Patch TD SCH (03:30)
[2019-12-29] MEDS: Cefepime 2 GM in Sodium Chloride 0.9% 100 ML IVPB SCH ×2 (05:03→16:54)
[2019-12-29] MEDS ORDERED: Vancomycin 1 GM in Premix Bag 1 BAG IVPB SCH (06:00)
[2019-12-29] MEDS ORDERED: Cefepime 2 GM in Sodium Chloride 0.9% 100 ML IVPB SCH (06:00)
[2019-12-29 06:21] LABS: HBCM Index 0.07 S/CO (0-0.79); HBSAg Index 0.15 S/CO (0-0.99); Hep A IgM AB Non-Reactive (NonReactive); Hep A IgM S/CO 0.18 S/CO (0-0.79); Hep B Surf Ag Non-Reactive S/CO (NonReactive); Hepatitis B Core IgM Abs Non-Reactive (NonReactive)
[2019-12-29 06:38] LABS: Hep C IgG Ab Reflex HepC Qnt (NonReactive); Hep C Index 12.74 S/CO (0-0.79)
--- NOTE | 2019-12-29 07:54 | ULT ---
GALLBLADDER ULTRASOUND: HISTORY:Hepatitis, elevated LFTs FINDINGS: The liver demonstrates increased echogenicity without focal mass or intrahepatic biliary ductal dilat ation. The patient is post cholecystectomy. The right kidney and visualized portions of the pancreas are normal. The common duct [id number] in diameter. No free fluid is seen in the Cook's pouch. IMPRESSION: 1. Fatty liver 2. Status post cholecystectomy
[2019-12-29] MEDS ORDERED: FLU VACC QS2020-21(6MOS UP)/PF 60 MCG/0.5 ML SYRINGE IM ONE (09:00)
[2019-12-29 09:02] LABS: #Basophils 0.1 thou/uL (0.0-0.2); #Eosinphils 0.1 thou/uL (0.0-0.7); #Lymphocytes 1.9 thou/uL (1.20-3.40); #Monocytes 0.5 thou/uL (0.11-0.59); #Neutrophils 1.7 thou/uL (1.40-6.50); %Basophils 1.5 % (0.0-1.0); %Eosinophils 1.8 % (0.0-10.0); %Monocytes 11.9 % (0.0-10.0); %Neutrophils 39.7 % (42.0-75.0); Hemoglobin 12.6 g/dL (14.0-18.0); Mean Corpuscular HGB CONC 30.8 g/dL (32.0-36.0); Mean Corpuscular Hemoglobin 24.5 pg (27.0-31.0); Mean Corpuscular Volume 79.6 fL (78.0-98.0); Mean Platelet Volume 8.3 fL (7.4-10.4); Platelet Count 150 thou/uL (130-400); RBC Distribution Width 13.9 % (11.5-14.5); Red Blood Cell (RBC) Count 5.14 mill/uL (4.70-6.10); White Blood Cell (WBC) Count 4.3 thou/uL (4.8-10.8)
[2019-12-29 09:25] LABS: Anion Gap 9 mmol/L (10-20); BUN (Urea Nitrogen) 11 mg/dL (8.4-25.7); Calc. Creatinine Clearance 76 mL/min (70-130); Carbon Dioxide 26 mmol/L (22-29); Chloride 108 mmol/L (98-107); Estimated GFR-MDRD Greater than 90; Glucose 83 mg/dL (70-105); Magnesium 1.6 mg/dL (1.6-2.6); Potassium 3.8 mmol/L (3.5-5.1); Sodium 139 mmol/L (136-145)
[2019-12-29] MEDS: Acetaminophen 325 MG TAB PO PRN (09:37)
[2019-12-29] MEDS: Amlodipine 10 MG TAB PO SCH (09:38)
[2019-12-29 10:59] LABS: SARS-CoV-2 MS2 Positive; SARS-CoV-2 N Gene Negative; SARS-CoV-2 S Gene Negative; SARS-CoV-2 by NAA Not Detected (NotDetected); SARS-CoV-2 orf1ab Negative
--- NOTE | 2019-12-29 14:29 | CON ---
DATE OF CONSULTATION: HISTORY OF PRESENT ILLNESS: Larry Resendiz is a 54-year-old black male with history of bipolar disorder, schizophrenia, and polysubstance abuse, who was brought to the emergency room for erratic behavior. He was hospitalized here in November 2017 and was noted to be bradycardic. He underwent Cardiolite testing, which was normal. He has been noted to have heart rates in the mid 30s during this admission. Also, he has had an episode of junctional escape beats with a 1.7 second pause. Mr. Resendiz denies any chest discomfort or shortness of breath. He denies ever having a syncopal episode. He denies any significant dizziness or lightheadedness. He has been having auditory hallucinations and is admitted for [facility] evaluation. Urine drug screen was positive for methamphetamines and amphetamines. PAST MEDICAL HISTORY: Bipolar disorder, schizophrenia, polysubstance abuse with amphetamines and methamphetamines. Also in the past, he has had cocaine and cannabinoids. MEDICATIONS: 1. Naltrexone 50 mg daily. 2. Hydrochlorothiazide 50 daily. 3. Olanzapine 5 mg daily. ALLERGIES: PENICILLIN. OPERATIONS: Cholecystectomy. SOCIAL HISTORY: He smokes. Occasionally drinks alcohol. He uses cocaine, marijuana, and methamphetamines. REVIEW OF SYSTEMS: Unremarkable. PHYSICAL EXAMINATION: VITAL SIGNS: Blood pressure of 113/80 and pulse of 63. HEENT: PERRL. NECK: Supple. CHEST: Clear. CARDIAC: S1 and S2 normal without any S3, S4, or murmurs. ABDOMEN: Normal bowel sounds without tenderness or organomegaly. EXTREMITIES: Revealed no clubbing, cyanosis, or edema. NEUROLOGIC: Grossly intact. SKIN: Warm and dry. LABORATORY DATA: EKG revealed marked sinus bradycardia with rate of 46 per minute and borderline left ventricular hypertrophy. Echocardiogram revealed ejection fraction of 50% to 55% with mild mitral and mild tricuspid regurgitation. Urine drug screen is positive for amphetamines and methamphetamines. Hemoglobin 12.6, hematocrit 40.9, white count 4300, and platelets 150,000. Sodium 139, potassium 3.8, chloride 108, carbon dioxide 26, BUN 11, and creatinine 0.9. TSH is normal. Troponin I is normal x3. IMPRESSION: 1. Asymptomatic bradycardia. He denies any history of syncope, lightheadedness, or dizziness. He has not had any significant ventricular ectopy on the monitor. 2. Bipolar disorder. 3. Schizophrenia. 4. Polysubstance abuse with history of use of cocaine, methamphetamine, and marijuana. 5. Acute encephalopathy. 6. Suicidal ideation. PLAN: Mr. Resendiz does have significant sinus bradycardia and even episodes of junctional bradycardia. However, he does not have any symptoms associated with this. At the present time, no intervention is required. Job ID: [id number] MTDD
[2019-12-29] MEDS: Dextrose 5 % And 0.9 % NaCl 1,000 ML IV SCH (15:36)
[2019-12-29] MEDS ORDERED: Lidocaine Patch Removal TOP SCH (16:00)
--- NOTE | 2019-12-29 16:03 | PQF ---
CLINICAL DOCUMENTATION CLARIFICATION FORM: Dear Dr. TRIMBLE Date: 12-29-19 Please exercise your independent, professional judgment in responding to the clarification form. Clinical indicators are provided on the bottom of this form for your review. Please check appropriate box(es): [ ] Encephalopathy: Type: [ x] Acute [ ] Subacute [ ] Chronic Etiology: [ x] Metabolic [ ] Toxic [ ] Septic [ ] Drug induced: [ ] Other (please specify) [ ] Transient Alteration of Awareness [ ] Other diagnosis [ ] Unable to determine In addition, please specify: Present on Admission (POA): [ x ] Yes [ ] No [ ] Unable to determine For continuity of documentation, please document condition throughout progress notes and discharge summary. Thank You. To be completed by CDI/Coding staff for physician review: CLINICAL INDICATORS - SIGNS / SYMPTOMS / LABS / RESULTS AND LOCATION IN EMR: ER DX 12-28-19: SYMPTOMATIC BRADYCARDIA, AUDITORY HALLUCINATIONS, HYPOGLYCEMIA, LACTIC ACIDOSIS H&p 12-28-19: POSSIBLE SEPSIS, ACUTE ENCEPHALOPATHY, MULTIFACTORIAL- SUBSTANCE ABUSE, HYPOGLYCEMIA, POSSIBLE SEPSIS, HYPOGLYCEMIA CORRECTED WITH DEXTROSE, WE WILL MONITOR OVER NIGHT ON ADMISSION, PSYCHOTIC DISORDER, DEPRESSION RISK FACTORS / RESULTS AND LOCATION IN EMR: H&p 12-28-19: POSSIBLE SEPSIS, ACUTE ENCEPHALOPATHY, MULTIFACTORIAL- SUBSTANCE ABUSE, HYPOGLYCEMIA, POSSIBLE SEPSIS, HYPOGLYCEMIA CORRECTED WITH DEXTROSE, WE WILL MONITOR OVER NIGHT ON ADMISSION, PSYCHOTIC DISORDER, DEPRESSION TREATMENTS / RESULTS AND LOCATION IN EMR: ER NOTES 12-28-19: VANCOMYCIN IV, NS IVF, CEFEPIME IV CDS Signature: Lindsey Ya Phone #: [phone] Date/Time: 12-29-19 This is a permanent part of the Medical Record [facility]
--- NOTE | 2019-12-29 16:35 | PDOC.HOSPP ---
- Subjective Encounter Date: 12/29/19 Encounter Time: 09:45 Subjective: Patient up in bed states that he is hungry. He denies taking any prescription diabetic medications. - Objective Vital Signs & Weight: Vital Signs (12 hours) Temp Pulse Resp BP BP Pulse Ox 12/29/19 16:00 98.4 F 56 L 14 120/71 99 12/29/19 11:57 98.8 F 63 14 113/80 100 12/29/19 09:38 50 L 119/77 12/29/19 08:00 98 F 52 L 14 113/68 100 Weight Admit Weight 132 lb 12.8 oz Weight 132 lb 12.8 oz Result Diagrams: 12/29/19 08:54 12/29/19 08:53 Additional Labs: Accuchecks 12/29/19 12/29/19 12/29/19 12:08 09:01 04:17 POC Glucose 84 80 122 H 12/28/19 12/28/19 12/28/19 23:43 22:33 21:31 POC Glucose 90 125 H 50 L* 12/28/19 18:00 POC Glucose 122 H Hospitalist ROS - Review of Systems Cardiovascular: denies: chest pain, palpitations, orthopnea, paroxysmal noc. dyspnea, edema, light headedness, other Gastrointestinal: denies: nausea, vomiting, abdominal pain, diarrhea, constipation, melena, hematochezia, other Genitourinary: denies: dysuria, frequency, incontinence, hematuria, retention, other - Medication Medications: Active Medications Generic Name Dose Route Start Last Admin Trade Name Freq PRN Reason Stop Dose Admin Acetaminophen 650 mg 12/28/19 22:11 12/29/19 09:37 Acetaminophen 325 Mg Tab PO 650 mg Q6H PRN Administration Fever/Mild Pain Amlodipine Besylate 10 mg 12/29/19 09:00 12/29/19 09:38 Amlodipine 10 Mg Tab PO 10 mg DAILY ALLIE Administration Cefepime HCl 2 gm/ Sodium 100 mls @ 200 mls/hr 12/29/19 05:00 12/29/19 05:03 Chloride IVPB 100 mls 0500,1700 ALLIE Administration Dextrose/Sodium Chloride 1,000 mls @ 75 mls/hr 12/29/19 14:30 12/29/19 15:36 D5 0.9% Ns IV 1,000 mls .[id number] ALLIE Administration Miscellaneous Medication 1 each 12/29/19 16:00 12/29/19 15:36 Lidocaine Patch Removal TOP 12/29/19 23:59 1 each 1600 LALIE Administration - Exam Heart: negative: RRR, no murmur, no gallops, no rubs, normal peripheral pulses, irregular, diminshed peripheral pulses, murmur present, II/IV, III/IV Respiratory: negative: CTAB, no wheezes, no rales, no ronchi, normal chest expansion, no tachypnea, normal percussion, rales, rhonchi, tachypneic, wheezes Gastrointestinal: negative: soft, non-tender, non-distended, normal bowel sounds, no palpable masses, no hepatomegaly, no splenomegaly, no bruit, no guarding, no rigidity, tender to palpation, distended, diminished bowl sounds, voluntary guarding Extremities: negative: no cyanosis, no clubbing, no edema, 1+ LE edema, 2+ LE edema, clubbing Hosp A/P (1) Acute metabolic encephalopathy Code(s): G93.41 - METABOLIC ENCEPHALOPATHY Status: Acute (2) Substance abuse Code(s): F19.10 - OTHER PSYCHOACTIVE SUBSTANCE ABUSE, UNCOMPLICATED Status: Acute (3) Hypoglycemia Code(s): E16.2 - HYPOGLYCEMIA, UNSPECIFIED Status: Acute (4) Bradycardia Code(s): R00.1 - BRADYCARDIA, UNSPECIFIED Status: Acute (5) Hepatitis C Code(s): B19.20 - UNSPECIFIED VIRAL HEPATITIS C WITHOUT HEPATIC COMA Status: Acute (6) Fatty liver Code(s): K76.0 - FATTY (CHANGE OF) LIVER, NOT ELSEWHERE CLASSIFIED Status: Acute - Plan Unclear etiology of patient's hypoglycemia. He is not a diabetic. I will check a TSH, cortisol, insulin, C-peptide level. Patient states that he eats 2 meals a day however he has lost some weight. Denies any dark stools or bloody bowel movements. Patient normally takes hydrochlorothiazide, olanzapine, naltrexone however has not picked up his prescription. Patient states that he does not have much of an appetite. I will go ahead and get a CT abdomen pelvis with contrast. Cardiology has been consulted for his bradycardia. Echocardiogram in dicates a good EF with no significant abnormalities noted. Right upper quadrant ultrasound given his elevated LFTs indicates fatty liver. He has not been treated for his hepatitis C.
[2019-12-30] MEDS: Acetaminophen 325 MG TAB PO PRN ×2 (04:07→10:39)
[2019-12-30 05:23] LABS: Prothrombin Time 13.2 sec (12.0-14.7)
[2019-12-30 05:24] LABS: PTT 39.1 sec (22.9-36.1)
[2019-12-30 05:38] LABS: ALT (SGPT) 54 U/L (8-55); AST (SGOT) 57 U/L (5-34); Albumin 3.3 g/dL (3.5-5.0); Alkaline Phosphatase 76 U/L (40-110); Anion Gap 9 mmol/L (10-20); BUN (Urea Nitrogen) 9 mg/dL (8.4-25.7); Bilirubin, Total 0.5 mg/dL (0.2-1.2); Calc. Creatinine Clearance 83 mL/min (70-130); Calcium 8.4 mg/dL (7.8-10.44); Carbon Dioxide 29 mmol/L (22-29); Chloride 104 mmol/L (98-107); Estimated GFR-MDRD Greater than 90; Glucose 90 mg/dL (70-105); Potassium 3.8 mmol/L (3.5-5.1); Protein, Total 6.3 g/dL (6.0-8.3); Sodium 138 mmol/L (136-145)
[2019-12-30] MEDS: Dextrose 5 % And 0.9 % NaCl 1,000 ML IV SCH (05:48)
[2019-12-30] MEDS: Cefepime 2 GM in Sodium Chloride 0.9% 100 ML IVPB SCH ×2 (05:48→18:08)
--- NOTE | 2019-12-30 10:39 | CT ---
EXAM: CT ABDOMEN AND PELVIS HISTORY: Hypoglycemia. Abdominal pain x1 month. Intermittent pain. COMPARISON: 09/14/2019, 11/28/2019, 06/23/2019 Procedure: Multiple contiguous axial images were obtained and a CT of the abdomen and pelvis with IV contrast. C oronal reformats were performed. FINDINGS: Lower Chest: Small left effusion with adjacent passive atelectasis and scarring. Calcified granulomas in left lower lobe Vessels: Normal caliber aorta Heart: Normal heart size. No significant pericardial fluid Abdomen: Portal vein:Patent Gallbladder: Surgically absent Liver: within normal limits. Pancreas: No enhancing masses. Stable dilatation of the pancreatic duct. Spleen: within normal limits. Adrenals: within normal limits. Kidneys: Symmetric enhancement. No obstructive uropathy. Bilateral nonobstructing intrarenal calculi. Peritoneum: No ascites or free air, no fluid collection. Bowel: Gastric mucosa, duodenum and small bowel loops have a normal caliber. Normal ileocecal junctio n. Normal caliber air-filled appendix. Scattered fecal material in a nondistended, nondilated colon. Mesentery and Retroperitoneum: Decreased visceral fat limits evaluation. No mesenteric mass, nephropa thy, free air or free fluid. Abdominal Wall: within normal limits. Pelvis: Reproductive Organs: Reproductive organs are unremarkable. Pelvis: No mass, lymphadenopathy, free air or free fluid. Bladder: within normal limits. Bones: within normal limits. IMPRESSION: No evidence of acute intraabdominal\pelvic abnormality.
[2019-12-30] MEDS: Amlodipine 10 MG TAB PO SCH (10:40)
[2019-12-30] MEDS ORDERED: Bisacodyl 5 MG TAB PO SCH (13:15)
[2019-12-30] MEDS ORDERED: Polyethylene Glycol 3350 17 GM Packet PO SCH (13:15)
--- NOTE | 2019-12-30 13:15 | PDOC.HOSPP ---
- Subjective Encounter Date: 12/30/19 Encounter Time: 10:30 Subjective: pt up in bed complaining of pain to his right hand where the IV site is. - Objective Vital Signs & Weight: Vital Signs (12 hours) Temp Pulse Resp BP Pulse Ox 12/30/19 11:45 97.5 F L 51 L 18 149/94 H 100 12/30/19 10:40 52 L 12/30/19 07:54 97.9 F 54 L 16 125/86 100 12/30/19 04:00 96.7 F L 56 L 16 136/87 95 Weight Admit Weight 132 lb 12.8 oz Weight 132 lb 12.8 oz I&O: 12/29/19 12/30/19 12/31/19 06:59 06:59 06:59 Intake Total 1374 Output Total 1200 Balance 174 Result Diagrams: 12/29/19 08:54 12/30/19 04:44 Additional Labs: Accuchecks 12/30/19 12/30/19 12/29/19 09:19 03:49 16:52 POC Glucose 78 106 H 76 Hospitalist ROS - Review of Systems Respiratory: denies: cough, dry, shortness of breath, hemoptysis, SOB with excertion, pleuritic pain, sputum, wheezing, other Cardiovascular: denies: chest pain, palpitations, orthopnea, paroxysmal noc. dyspnea, edema, light headedness, other Gastrointestinal: denies: nausea, vomiting, abdominal pain, diarrhea, constipation, melena, hematochezia, other Musculoskeletal: reports: hand pain - Medication Medications: Active Medications Generic Name Dose Route Start Last Admin Trade Name Wesq PRN Reason Stop Dose Admin Acetaminophen 650 mg 12/28/19 22:11 12/30/19 10:39 Acetaminophen 325 Mg Tab PO 650 mg Q6H PRN Administration Fever/Mild Pain Amlodipine Besylate 10 mg 12/29/19 09:00 12/30/19 10:40 Amlodipine 10 Mg Tab PO 10 mg DAILY ALLIE Administration Cefepime HCl 2 gm/ Sodium 100 mls @ 200 mls/hr 12/29/19 05:00 12/30/19 05:48 Chloride IVPB 100 mls 0500,1700 ALLIE Administration - Exam Neck: negative: supple, symmetric, no JVD, no thyromegaly, no lymphadenopathy, no carotid bruit, JVD Heart: negative: RRR, no murmur, no gallops, no rubs, normal peripheral pulses, irregular, diminshed peripheral pulses, murmur present, II/IV, III/IV Respiratory: negative: CTAB, no wheezes, no rales, no ronchi, normal chest expansion, no tachypnea, normal percussion, rales, rhonchi, tachypneic, wheezes Gastrointestinal: soft, normal bowel sounds Gastrointestinal - other findings: Mild pain upon palpation to epigastric area Hosp A/P (1) Acute metabolic encephalopathy Code(s): G93.41 - METABOLIC ENCEPHALOPATHY Status: Acute (2) Substance abuse Code(s): F19.10 - OTHER PSYCHOACTIVE SUBSTANCE ABUSE, UNCOMPLICATED Status: Acute (3) Hypoglycemia Code(s): E16.2 - HYPOGLYCEMIA, UNSPECIFIED Status: Acute (4) Bradycardia Code(s): R00.1 - BRADYCARDIA, UNSPECIFIED Status: Acute (5) Hepatitis C Code(s): B19.20 - UNSPECIFIED VIRAL HEPATITIS C WITHOUT HEPATIC COMA Status: Acute (6) Fatty liver Code(s): K76.0 - FATTY (CHANGE OF) LIVER, NOT ELSEWHERE CLASSIFIED Status: Acute - Plan Unclear etiology of patient's hypoglycemia. He is not a diabetic. I will check a TSH, cortisol, insulin, C-peptide level. Patient states that he eats 2 meals a day however he has lost some weight. Denies any dark stools or bloody bowel movements. Patient normally takes hydrochlorothiazide, olanzapine, naltrexone however has not picked up his prescription. Patient states that he does not have much of an appetite. I will go ahead and get a CT abdomen pelvis with contrast. Cardiology has been consulted for his bradycardia. Echocardiogram indicates a good EF with no significant abnormalities noted. Right upper quadrant ultrasound given his elevated LFTs indicates fatty liver. He has not been treated for his hepatitis C. 12/29 patient's IV fluids stopped. He has been able to tolerate his meals. We will monitor him for 24 hours if he requires no dextrose we will possibly discharge him. His TSH and cortisol levels were normal. CT abdomen pelvis did not indicate any acute abnormalities. He does have significant amount of fecal material for which I will put him on medications. Possible discharge in 24 to 48 hours. Patient has been advised to refrain from drugs.
[2019-12-30] MEDS ORDERED: Iopamidol-370 76% 500 ML 1 ML ONE (14:53)
[2019-12-30] MEDS: Senokot S 8.6-50 MG TAB PO SCH (21:13)
[2019-12-31] MEDS: Cefepime 2 GM in Sodium Chloride 0.9% 100 ML IVPB SCH (05:43)
[2019-12-31] MEDS: Amlodipine 10 MG TAB PO SCH (08:48)
[2019-12-31] MEDS: Senokot S 8.6-50 MG TAB PO SCH (08:48)
[2019-12-31] MEDS ORDERED: OLANZapine 5 MG TAB PO SCH ×2 (09:00)
[2019-12-31] MEDS ORDERED: Non-Formulary Item 1 EACH (Naltrexone Hcl [Naltrexone Hcl] 50 MG Tablet) PO SCH (09:00)
[2019-12-31] MEDS ORDERED: Non-Formulary Item 1 EACH (Hydrochlorothiazide [Hydrochlorothiazide] 50 MG Tablet) PO SCH (09:00)
[2019-12-31] MEDS ORDERED: [Naltrexone Hcl] 50 MG Tablet PO SCH (09:00)
[2019-12-31] MEDS ORDERED: Hydrochlorothiazide 25 MG TAB PO SCH (09:00)
[2019-12-31 14:39] VITALS: BP 127/72; TEMP 98.1
--- NOTE | 2019-12-31 23:04 | DIS ---
DATE OF ADMISSION: 12/28/2019 DATE OF DISCHARGE: 12/31/2019 DISCHARGE DIAGNOSES: 1. Acute metabolic encephalopathy, resolved. 2. Substance abuse. 3. , resolved. 4. Bradycardia, chronic. 5. Hepatitis C. 6. Lactic acidosis, resolved. HOSPITAL COURSE: The patient is a 54-year-old male who initially presented to the hospital with concerns for seizure and change in mental status. Patient has a schizoaffective disorder, has not been on medication, and he was also noted to be positive for amphetamines and methamphetamines. When I spoke with the patient, he stated that nobody was listening to him. He at that time made a threat at home. Apparently, however, in the ER in the hospital, he denied any suicidal ideations or homicidal ideations. He was also upset that he initially came in for some pain and he called the ambulance, and then when he was evaluated in the ER and then he was discharged, and he did not have a ride home, and that made him upset, and he stated that he felt that there was no way he was able to get back home since he lives far and [place] is where they initially brought him, which they should have not. Patient here was noted to have some low blood sugars. He was initially put on a D5, D10 drip. He did have a CT head, which was negative. He then underwent a CT of abdomen and pelvis concerns for his since he is not on any diabetic medications. CT abdomen and pelvis was unremarkable with contrast, the only thing mentioned was he had significant stool. He was given stool softeners. He had significant amount of bowel movement, which resolved his abdominal pain and he was monitored 24 hours without any glucose supplements and he was able to eat, and he did well without any intervention. At this time, he was discharged home. His TSH and cortisol level were checked, they were normal. He was noted to have bradycardia. At this time, Cardiology was consulted, this is not new. He had underwent an echocardiogram which indicated an EF of 50% to 55%. He was also evaluated by [facility], and they stated that based on his records before when patient feels that he requires some attention, he has kind of made statements about hurting himself, however, currently he denies any symptoms. There is nothing in the documentation in the ER per my reviewing of the records that indicates that he was suicidal or homicidal. At this time, Mental Health has a plan for him. They will follow up with him over the weekend and also follow up with him on Friday as they are closely watching him. Patient was encouraged to resume his home medications since he has not been on his medications. He had a CT head, which was negative. He had a pelvic x-ray which also was unremarkable. Patient also had an abdominal ultrasound done, which indicated just fatty liver and status post cholecystectomy, and the patient was notified about this. He was asked to follow up with his primary care doctor in regard to this. He is aware and he will follow up with his primary. He was also asked to refrain from drug use. PHYSICAL EXAMINATION: VITAL SIGNS: Temperature of 97.8, 53, 16, 100% on room air, 114/72. GENERAL: He is awake, alert, and oriented x3, does not appear in distress. CVS: S1, S2 present. No murmurs, rubs, or gallops. HOME MEDICATIONS: 1. Olanzapine 5 mg daily. 2. Naltrexone 50 mg daily. I have talked to him about interactions of this in addition to taking any drugs. 3. Hydrochlorothiazide 50 mg daily. 4. MiraLAX 17 g daily, which I have prescribed for him. Job ID: [id number]
--- NOTE | 2020-01-03 06:12 | PQF ---
CLINICAL DOCUMENTATION CLARIFICATION FORM: Dear : Claudia Baxter Date / Time: 01/03/2020 0611 Please exercise your independent, professional judgment in responding to the clarification form. Clinical indicators are provided on the bottom of this form for your review Please check appropriate box(es): [ ] Sepsis due to, please specify condition: [ ] Severe sepsis with Encephalopathy (metabolic) (septic) [ ] Localized infection without sepsis [ x ] SIRS due to non-infectious process (please specify etiology) [ ] with organ dysfunction [ ] without organ dysfunction [ ] Other diagnosis [ ] Unable to determine Physician Signature: Date/Time: For continuity of documentation, please document condition throughout progress notes and discharge summary. Thank You. To be completed by CDI/Coding staff for physician review: Present Clinical Indicators - Signs / Symptoms / Labs Results and Location in Medical Record [X] WBC 4.7, Plt count 132, Neutrophils 31, Lactic acid 3.7, Glucose 45 Laboratory 12/27 [X] Blood culture : No growth in 5 days Microbiology 12/27 [X] BP 189/115, Pulse 44, Resp 26, Temp 98 Vital signs 12/27 [X] DDX considered Sepsis: Pneumonia ED notes p112/27 [X] Lactic acidosis ED notes p11 12/27 [X] Altered mental status H&p p1 12/27 Dr Adams [X] Concern for Sepsis H&p p1 12/27 Dr Adams [X] Possible sepsis H&p p3 12/27 Dr Adams [X] Acute metabolic encephalopathy, multifactorial- substance abuse, hypoglycemia, possible sepsis H&p p4 12/27 Dr Adams Present Risk Factors Results and Location in Medical Record [X] Smoker H&p p2 12/27 Dr Adams [X] Cocaine and marijuana abuse H&p p2 12/27 Dr Adams [X] Hepatitis H&p p4 12/27 Dr Adams Present Treatments Results and Location in Medical Record [X] IV Vancomycin 1 gm APR 27 [X] IV Cefepime 2gm APR 27 [X] Blood culture Microbiology 12/27 CDS/Drawing Hand Signature: Ly Javier Phone #: [id number] Date/Time: 01/03/2020 0611 This is a permanent part of the Medical Record [facility]
[2020-01-07] MEDS ORDERED: OLANZapine 5 MG TAB PO SCH (09:00)
--- NOTE | 2020-01-08 17:38 | EKG ---
Test Reason : Blood Pressure : / mmHG Vent. Rate : 046 BPM Atrial Rate : 046 BPM P-R Int : 144 ms QRS Dur : 090 ms QT Int : 516 ms P-R-T Axes : 055 011 048 degrees QTc Int : 451 ms Marked sinus bradycardia Minimal voltage criteria for LVH, may be normal variant Abnormal ECG Confirmed by EDNA WALLIS M.D. ([id number]), greeting card editor DIPAK NUNEZ ([id number]) on 01/08/2020 5:37:57 PM Referred By: Confirmed By:EDNA WALLIS M.D.
== END 2019-12-31 17:53 | disposition home or self-care (01) | DRG 640 ==
LOC: ERS 14:54 → ERHOLD 18:37 → 2SE 21:21
PROVIDERS: ADMIT Student in an Organized Health Care Education/Training Program; ATTEND Internal Medicine
DX: E16.2 Hypoglycemia, unspecified (principal); G93.41 Metabolic encephalopathy; E87.2 Acidosis; R65.10 Systemic inflammatory response syndrome (SIRS) of non-infectious origin without acute organ dysfunction; Z20.828 Contact with and (suspected) exposure to other viral communicable diseases; R00.1 Bradycardia, unspecified; I10 Essential (primary) hypertension; G89.29 Other chronic pain; M54.9 Dorsalgia, unspecified; M54.2 Cervicalgia; F31.9 Bipolar disorder, unspecified; F25.9 Schizoaffective disorder, unspecified; F41.9 Anxiety disorder, unspecified; F17.210 Nicotine dependence, cigarettes, uncomplicated; F15.10 Other stimulant abuse, uncomplicated; F12.10 Cannabis abuse, uncomplicated; K76.0 Fatty (change of) liver, not elsewhere classified; B19.20 Unspecified viral hepatitis C without hepatic coma; Z23 Encounter for immunization; Z90.49 Acquired absence of other specified parts of digestive tract; Z79.899 Other long term (current) drug therapy; Z88.0 Allergy status to penicillin
CPT/HCPCS: 36415; 36416; 70450; 71045; 72170; 74177; 76705; 80048; 80053; 80074; 80306; 80307; 81003; 82533; 82550; 83525; 83605; 83690; 83735; 83880; 84443; 84484; 84681; 85025; 85610; 85730; 87040; 87086; 87635; 90471; 90662; 93005; 93306; 96365; 96366; 96367; 96374; 96375; G0008; J0461; J0692; J1885; J3370; J3490; Q9967; U0003

== ENCOUNTER 2020-10-29 13:13 | Emergency (ER) | payer MEDICARE, OTHER ==
[2020-10-29 13:59] LABS: #Basophils 0.1 thou/uL (0.0-0.2); #Eosinphils 0.1 thou/uL (0.0-0.7); #Lymphocytes 1.8 thou/uL (1.20-3.40); #Monocytes 0.4 thou/uL (0.11-0.59); #Neutrophils 1.3 thou/uL (1.40-6.50); %Basophils 1.8 % (0.0-1.0); %Eosinophils 2.7 % (0.0-10.0); %Lymphocytes 48.9 % (21.0-51.0); %Monocytes 11.4 % (0.0-10.0); %Neutrophils 35.3 % (42.0-75.0); Hemoglobin 12.9 g/dL (14.0-18.0); Mean Corpuscular HGB CONC 32.5 g/dL (32.0-36.0); Mean Corpuscular Hemoglobin 25.4 pg (27.0-31.0); Mean Corpuscular Volume 78.3 fL (78.0-98.0); Mean Platelet Volume 8.6 fL (7.4-10.4); Platelet Count 174 thou/uL (130-400); RBC Distribution Width 14.3 % (11.5-14.5); Red Blood Cell (RBC) Count 5.07 mill/uL (4.70-6.10); White Blood Cell (WBC) Count 3.7 thou/uL (4.8-10.8)
[2020-10-29 14:31] LABS: Acetaminophen Less than 6.0 mcg/mL (10.0-30.0); Alcohol Less than 10 mg/dL (Less than 10); Salicylate Less than 8.0 mg/dL (15.0-30.0)
[2020-10-29 14:40] LABS: ALT (SGPT) 36 U/L (8-55); AST (SGOT) 46 U/L (5-34); Albumin 3.4 g/dL (3.5-5.0); Alkaline Phosphatase 66 U/L (40-110); Anion Gap 11 mmol/L (10-20); BUN (Urea Nitrogen) 11 mg/dL (8.4-25.7); Bilirubin, Total 0.5 mg/dL (0.2-1.2); CK (CPK) 292 U/L (30-200); Calc. Creatinine Clearance 0 mL/min (70-130); Calcium 8.6 mg/dL (7.8-10.44); Carbon Dioxide 27 mmol/L (22-29); Chloride 107 mmol/L (98-107); Globulin 2.7 g/dL (2.4-3.5); Glucose 69 mg/dL (70-105); Potassium 3.6 mmol/L (3.5-5.1); Protein, Total 6.1 g/dL (6.0-8.3); Sodium 141 mmol/L (136-145)
[2020-10-29 15:15] LABS: Bacteria/HPF None Seen HPF (None Seen); Bilirubin Negative (Negative); Blood, Urine 3+ (Negative); Clarity Turbid (Clear); Glucose, Urine (Dipstick) Normal (Negative); Ketone, Urine Negative (Negative); Leukocyte Negative Leu/uL (Negative); Nitrite Negative (Negative); Protein, Urine (Dipstick) 50 mg/dL (Neg-Trace); RBC/HPF Greater than 50 HPF (0-3); Specific Gravity, Urine 1.029 (1.002-1.036); Squamous Epithelial None Seen HPF (0-3)
[2020-10-29 15:16] LABS: Sperm/HPF 1+ HPF (None Seen)
[2020-10-29 15:20] LABS: Amphetamine Detected (NotDetected); Barbiturates Screen Not Detected (NotDetected); Benzodiazepine Screen Not Detected (NotDetected); Cocaine Metabolite Screen Not Detected (NotDetected); Methadone Not Detected (NotDetected); Methamphetamine Detected (NotDetected); Opiate Screen Not Detected (NotDetected); Oxycodone Screen Not Detected (NotDetected); Phencyclidine (PCP) Detected (NotDetected); THC/Cannabinoid Screen Detected (NotDetected); Tricyclic Screen Not Detected (NotDetected)
== END 2020-10-29 17:18 | disposition home or self-care (01) ==
LOC: ERS 13:13
DX: R10.9 Unspecified abdominal pain (principal); F15.20 Other stimulant dependence, uncomplicated; F12.10 Cannabis abuse, uncomplicated; I10 Essential (primary) hypertension; Z79.899 Other long term (current) drug therapy
CPT/HCPCS: 36415; 71045; 74176; 80053; 80306; 80307; 81003; 81015; 82550; 83880; 84484; 85025; 93005

== ENCOUNTER 2022-08-28 09:31 | Emergency (ER) | payer OTHER ==
[2022-08-28] MEDS ORDERED: Ketorolac Tromethamine 30 MG/ML VIAL ONE (10:39)
[2022-08-28 11:49] LABS: Bacteria/HPF 2+ HPF (None Seen); Bilirubin Negative (Negative); Blood, Urine Negative (Negative); CAUTI Indications for Culture Dysuria,urgency,freq; Clarity Turbid (Clear); Glucose, Urine (Dipstick) Normal (Negative); Ketone, Urine Negative (Negative); Leukocyte 250 Leu/uL (Negative); Nitrite Negative (Negative); Protein, Urine (Dipstick) 10 mg/dL (Neg-Trace); RBC/HPF 0-3 HPF (0-3); Squamous Epithelial 0-3 HPF (0-3); Urobilinogen Normal mg/dL (Less than 2); WBC/HPF 21-50 HPF (0-3)
[2022-08-28 11:55] LABS: Sperm/HPF None Seen HPF (None Seen)
[2022-08-28 11:57] LABS: Urine Culture Reflex Yes Yes
[2022-08-28 23:14] LABS: Chlam.trachomatis by PCR,Urine Not Detected (NotDetected); GC N.gonorrhoeae PCR,UrineVOID Not Detected (NotDetected)
== END 2022-08-28 12:17 | disposition home or self-care (01) ==
LOC: ERS 09:31
DX: R30.0 Dysuria (principal); I10 Essential (primary) hypertension
CPT/HCPCS: 76870; 81001; 87077; 87086; 87186; 87491; 87591; 93976; 96372; J1885

== ENCOUNTER 2024-10-13 12:35 | Inpatient (IN) | payer OTHER, MEDICAID ==
[2024-10-13] MEDS ORDERED: Aspirin Chewable 81 MG TAB ONE (12:56)
[2024-10-13 15:26] LABS: #Basophils Less than 0.03 10x3/uL (0.0-0.2); #Eosinophils 0.18 10x3/uL (0.0-0.7); #Monocytes 0.40 10x3/uL (0.11-0.59); #Neutrophils 2.03 10x3/uL (1.40-6.50); %Basophils 0.2 % (0.0-1.0); %Eosinophils 3.9 % (0.0-10.0); %Lymphocytes 42.6 % (21.0-51.0); %Monocytes 8.7 % (0.0-10.0); %Neutrophils 44.4 % (42.0-75.0); Hematocrit 42.4 % (42.0-52.0); Hemoglobin 13.3 g/dL (14.0-18.0); Mean Corpuscular Hemoglobin 23.2 pg (27.0-31.0); Mean Corpuscular Volume 74.0 fL (78.0-98.0); Platelet Count 187 10x3/uL (130-400); Red Blood Cell (RBC) Count 5.73 mill/uL (4.70-6.10); White Blood Cell (WBC) Count 4.58 10x3/uL (4.8-10.8)
[2024-10-13 16:07] LABS: ALT (SGPT) 69 U/L (Less than 45); AST (SGOT) 133 U/L (11-34); Albumin 3.5 g/dL (3.1-4.5); Alkaline Phosphatase 75 U/L (40-110); Anion Gap 15 mmol/L (10-20); BUN (Urea Nitrogen) 11 mg/dL (8.4-25.7); Bilirubin, Total 0.7 mg/dL (0.3-1.2); Calc. Creatinine Clearance 0 mL/min (70-130); Calcium 8.7 mg/dL (7.8-10.44); Carbon Dioxide 25 mmol/L (23-31); Chloride 109 mmol/L (98-107); Globulin 3.6 g/dL (2.4-3.5); Glucose 75 mg/dL (80-115); Potassium 4.9 mmol/L (3.5-5.1); Sodium 144 mmol/L (136-145)
[2024-10-13 16:34] LABS: Anisocytosis SLIGHT = 6-15 cells HPF (0-5); Burr Cells SLIGHT = 2-5 cells HPF (0-1); Microcytosis SLIGHT = 6-15 cells HPF (0-5); Platelet Adequacy Comment Platelets Normal; Schistocytes SLIGHT = 2-5 cells HPF (0-1)
[2024-10-13] MEDS ORDERED: hydrALAZINE 20 MG/ML VIAL SLOW IVP PRN (17:53)
[2024-10-13] MEDS ORDERED: Ondansetron PF 4 MG/2 ML Vial IVP PRN (17:53)
[2024-10-13 18:56] LABS: Hep C IgG Ab Reflex HepC Qnt S/CO (NonReactive); Hep C Index 13.50 S/CO (0-0.79)
[2024-10-13 19:04] LABS: Hep B Core IgM Index 0.09 S/CO (0-0.79)
[2024-10-13 19:05] LABS: Hep A IgM AB NONREACTIVE (NonReactive); Hep A IgM S/CO 0.15 S/CO (0-0.79); Hep B Surf Ag NONREACTIVE S/CO (NonReactive)
[2024-10-13 19:19] VITALS: BMI 17.4
[2024-10-13] MEDS: Famotidine 20 MG TAB PO SCH (20:15)
[2024-10-13] MEDS: Ibuprofen 200 MG TAB PO PRN (21:04)
[2024-10-13 21:05] LABS: Cocaine Metabolite Screen Negative (Negative); THC/Cannabinoid Screen Negative (Negative); Tricyclic Screen Negative (Negative)
[2024-10-14] MEDS: Ketorolac Tromethamine 30 MG (1 mL) VIAL IVP SCH (01:23)
[2024-10-14 05:31] LABS: #Basophils Less than 0.03 10x3/uL (0.0-0.2); #Eosinophils 0.18 10x3/uL (0.0-0.7); #Monocytes 0.32 10x3/uL (0.11-0.59); #Neutrophils 1.20 10x3/uL (1.40-6.50); %Basophils 0.3 % (0.0-1.0); %Eosinophils 4.7 % (0.0-10.0); %Lymphocytes 55.5 % (21.0-51.0); %Monocytes 8.3 % (0.0-10.0); %Neutrophils 31.2 % (42.0-75.0); Hematocrit 36.5 % (42.0-52.0); Hemoglobin 11.6 g/dL (14.0-18.0); Mean Corpuscular Hemoglobin 23.4 pg (27.0-31.0); Mean Corpuscular Volume 73.6 fL (78.0-98.0); Platelet Count 153 10x3/uL (130-400); Red Blood Cell (RBC) Count 4.96 mill/uL (4.70-6.10); White Blood Cell (WBC) Count 3.84 10x3/uL (4.8-10.8)
[2024-10-14 06:03] LABS: ALT (SGPT) 67 U/L (Less than 45); AST (SGOT) 96 U/L (11-34); Albumin 2.7 g/dL (3.1-4.5); Alkaline Phosphatase 73 U/L (40-110); Anion Gap 9 mmol/L (10-20); BUN (Urea Nitrogen) 16 mg/dL (8.4-25.7); Bilirubin, Total 0.4 mg/dL (0.3-1.2); Calc. Creatinine Clearance 67 mL/min (70-130); Calcium 8.0 mg/dL (7.8-10.44); Carbon Dioxide 23 mmol/L (23-31); Chloride 112 mmol/L (98-107); Globulin 2.5 g/dL (2.4-3.5); Glucose 83 mg/dL (80-115); Magnesium 1.7 mg/dL (1.6-2.6); Potassium 3.4 mmol/L (3.5-5.1); Sodium 141 mmol/L (136-145)
[2024-10-14 16:25] VITALS: BMI 17.4
[2024-10-14] MEDS: Acetaminophen 500 MG TAB PO PRN (17:30)
[2024-10-15] MEDS: Magnesium 2 GM/50 ML(in water) 2 GM in Premix 1 BAG IVPB SCH (02:49)
[2024-10-15 05:02] VITALS: TEMP 97.6
[2024-10-15 05:05] LABS: Anion Gap 10 mmol/L (10-20); BUN (Urea Nitrogen) 10 mg/dL (8.4-25.7); Calc. Creatinine Clearance 70 mL/min (70-130); Calcium 8.0 mg/dL (7.8-10.44); Carbon Dioxide 22 mmol/L (23-31); Chloride 111 mmol/L (98-107); Glucose 79 mg/dL (80-115); Magnesium 2.2 mg/dL (1.6-2.6); Potassium 3.6 mmol/L (3.5-5.1); Sodium 139 mmol/L (136-145)
[2024-10-15 05:11] LABS: ALT (SGPT) 56 U/L (Less than 45); AST (SGOT) 60 U/L (11-34); Albumin 2.6 g/dL (3.1-4.5); Alkaline Phosphatase 72 U/L (40-110); Bilirubin, Direct 0.2 mg/dL (0.1-0.3); Bilirubin, Total 0.5 mg/dL (0.3-1.2)
[2024-10-15 11:41] VITALS: BP 149/77
[2024-10-18 17:38] LABS: HCV RNA, log10 5.365 (.); Hep C PCR-Quant 232000 IU/mL (.)
== END 2024-10-15 12:12 | disposition home or self-care (01) | DRG 310 ==
LOC: ERS 12:35 → 2NO 17:06
PROVIDERS: ADMIT Family Medicine; ATTEND Internal Medicine
DX: R00.1 Bradycardia, unspecified (principal); F31.9 Bipolar disorder, unspecified; I10 Essential (primary) hypertension; F20.9 Schizophrenia, unspecified; Z86.19 Personal history of other infectious and parasitic diseases; E86.0 Dehydration; R74.01 Elevation of levels of liver transaminase levels; M25.511 Pain in right shoulder; Z98.890 Other specified postprocedural states
CPT/HCPCS: 36415; 71045; 80048; 80053; 80074; 80076; 80306; 83735; 84100; 84443; 84484; 85025; 87522; 93005; 93010; 93306; 94760; J1885; J3475; J7030